=== PATIENT | female | born 1965 | race Caucasian/White ===

== ENCOUNTER 2018-03-07 10:34 | Emergency (ER) | payer SELFPAY ==
[2018-03-07] VITALS (7 sets, daily range): BP systolic 84–148; BP diastolic 48–86; PULSE 55–88; RESP 15–18; TEMP 36.7; O2SAT 95–100; BMI 17.2
--- NOTE | 2018-03-07 11:21 | DI.RAD.S_ITS ---
PROCEDURE: XR CHEST 2V INDICATIONS: episgastric pain TECHNIQUE: 2 views of the chest were acquired. COMPARISON: None. FINDINGS: Surgical changes and devices: None. Lungs and pleura: No pleural effusions or pneumothorax. Lungs are clear. Pulmonary hyperexpansion may reflect COPD. Mediastinum: Mediastinal contours are normal. Heart size is normal. Bones and chest wall: No suspicious bony abnormalities. Soft tissues appear unremarkable. IMPRESSION: 1. Possible chronic obstructive pulmonary disease. No acute cardiopulmonary abnormality seen. Dictated by: George Scales M.D. on 03/07/2018 at 11:51 Approved by: George Scales M.D. on 03/07/2018 at 11:52
[2018-03-07] MEDS: SODIUM CHLORIDE 0.9% 1,000 ML 1000 ML IV (11:30)
[2018-03-07] MEDS: HYDROMORPHONE 0.5 MG INJ 1 MG IV (11:49)
[2018-03-07] MEDS: ONDANSETRON 4 MG/2 ML INJ IV (11:51)
[2018-03-07 11:54] LABS: Add Manual Diff / Slide Review NO; Basophils Percent Auto 0.2 % (0-2); Eosinophils Percent Auto 0.7 % (2-4); Hematocrit 46.5 % (36-46); Hemoglobin 15.6 g/dL (12.0-16.0); Lymphocytes Percent Auto 17.4 % (25-40); Mean Corpuscular HGB Conc 33.4 % (30-36); Mean Corpuscular Hemoglobin 30.8 PG (26-34); Mean Corpuscular Volume 92.1 fL (80-100); Monocytes Percent Auto 7.6 % (3-14); Neutrophils Absolute Auto 8700 /uL (3000-5900); Neutrophils Percent Auto 74.1 % (50-75); Platelet Count 142 X10^3/uL (150-400); Red Blood Cell Count 5.05 X10^6/uL (4.0-5.2); Red Cell Distribution Width 13.3 % (11.6-14.8); White Blood Cell Count 11.7 X10^3/uL (4.5-11.0)
[2018-03-07 12:00] LABS: Bacteria Urine None Seen; RBC Urine None Seen (0-5/HPF); WBC Urine None Seen (0-5/HPF)
[2018-03-07 12:02] LABS: Alanine Aminotransferase 26 IU/L (9-52); Albumin 4.2 g/dL (3.5-5.0); Albumin Globulin Ratio 1.5 (1.0-2.8); Alkaline Phosphatase 47 U/L (38-126); Aspartate Aminotransferase 28 IU/L (14-36); Bilirubin Total 0.5 mg/dL (0.2-1.3); Blood Urea Nitrogen 21 mg/dL (7-17); Calcium 9.5 mg/dL (8.4-10.2); Carbon Dioxide 38 mmol/L (22-32); Chloride 96 mmol/L (98-107); Estimated Glomerular Filt Rate > 60.0 mL/min (>60); Globulin 2.8 g/dL (1.7-4.1); Glucose 112 mg/dL (70-100); HEMOLYSIS < 15 (0-50); Lipase 119 U/L (23-300); Magnesium 2.1 mg/dL (1.6-2.3); Potassium 3.8 mmol/L (3.4-5.1); Sodium 138 mmol/L (137-145)
[2018-03-07 12:04] LABS: Appearance Urine UA CLEAR; Bilirubin Urine UA NEGATIVE (NEGATIVE); Color Urine UA YELLOW; Glucose Urine UA NEGATIVE (Normal); Ketones Urine UA NEGATIVE (NEGATIVE); Leukocyte Esterase Urine UA NEGATIVE (NEGATIVE); Nitrite Urine UA Negative (Negative); Occult Blood Urine UA TRACE-LYSED (Negative); Protein Urine UA TRACE (Negative); Specific Gravity Urine UA 1.015 (1.000-1.035); Urobilinogen Urine UA 0.2 E.U./dL (0.2); pH Urine UA 7.5 (4.5-8.0)
[2018-03-07 12:11] LABS: Urine Cocaine Negative (Negative); Urine Tetrahydrocannabinol Positive (Negative)
[2018-03-07 12:12] LABS: Urine Amphetamines Negative (Negative); Urine Barbiturates Negative (Negative); Urine Benzodiazepines Negative (Negative); Urine MDMA Negative (Negative); Urine Methadone Negative (Negative); Urine Methamphetamines Negative (Negative); Urine Morphine/Opi cutoff 2000 Positive (Negative); Urine Oxycodone Negative (Negative); Urine Phencyclidine Positive (Negative); Urine Tricyclic Antidepressant Negative (Negative)
[2018-03-07 12:14] LABS: Troponin I 0.016 ng/mL (0.01-0.034)
[2018-03-07 12:25] LABS: Amorphous Sediment Urine 1+; Culture Indicated Urine Cult Not Indicated
--- NOTE | 2018-03-07 12:26 | DI.CT.S_ITS ---
PROCEDURE: CT ABDOMEN PELVIS W CON INDICATIONS: midline pain w/ weight loss and early satiety TECHNIQUE: After the administration of intravenous contrast, 5 mm thick sections acquired from the diaphragm to the symphysis. 5 mm coronal and sagittal reformats were acquired. For radiation dose reduction, the following was used: automated exposure control, adjustment of mA and/or kV according to patient size. COMPARISON: None. FINDINGS: Image quality: Excellent. ABDOMEN: Lung bases: Lung bases are clear. Heart size is normal. Likely emphysema. Solid organs: Liver is normal in size and enhancement. Gallbladder demonstrates enhancing 11 mm nodule (se 2 im 40). Biliary system is non dilated. Pancreas enhances normally. Spleen is normal in size and enhancement. No adrenal nodules. Kidneys demonstrate normal size and enhancement, without hydronephrosis. Peritoneum and bowel: Bowel loops demonstrate normal wall thickness and caliber. No free fluid or air. Nodes and vessels: No retroperitoneal or mesenteric adenopathy by size criteria. Aorta and inferior vena cava are normal in size. Miscellaneous: No ventral hernias. PELVIS: Genitourinary: Bladder wall thickness is normal. Miscellaneous: No inguinal hernias or adenopathy. Bones: No suspicious bony lesions. No vertebral body compression fractures. IMPRESSION: 1. Enhancing nodule in the medial aspect of the gallbladder is indeterminate and may represent a polyp although malignancy cannot be excluded. Consider ultrasound for further evaluation. 2. Bibasilar possible emphysema. Dictated by: Enoch Meade M.D. on 03/07/2018 at 13:29 Approved by: Enoch Meade M.D. on 03/07/2018 at 13:35
[2018-03-07 13:22] LABS: Acetaminophen < 10 ug/mL (10-30)
--- NOTE | 2018-03-07 14:38 | DI.US.S_ITS ---
PROCEDURE: US ABDOMEN LIMITED INDICATIONS: LUQ gallbladder mass - maglinancy? TECHNIQUE: Real-time focused scanning was performed of the abdomen, with image documentation. COMPARISON: [facility], CT, CT ABDOMEN PELVIS W CON, 03/07/2018, 12:53. FINDINGS: Corresponding to the CT finding is a solid 6 x 8 x 8 mm isoechoic mass in the gallbladder wall which otherwise is normal in thickness at 1.5 mm. There is mild vascularity present within the nodule. No associated calcification or shadowing. IMPRESSION: Gallbladder wall mass is confirmed and tumor is suspect. If the finding does represent a gallbladder polyp, it is measuring 8 mm for which followup is recommended. Dictated by: George Scales M.D. on 03/07/2018 at 15:43 Approved by: George Scales M.D. on 03/07/2018 at 15:49
[2018-03-07] MEDS: HALOPERIDOL 5 MG/ML VIAL 3 MG IV (15:07)
--- NOTE | 2018-03-07 16:39 | ED_ITS ---
HPI - Abdominal Pain General Chief Complaint: Abdominal Pain Stated Complaint: ABDOMINAL PAIN Time Seen by Provider: 03/07/18 10:39 History of Present Illness HPI narrative: HPI 53-year-old female smoker presents for evaluation of epigastric discomfort accompanied by nausea and vomiting x 3 days with decreased PO intake. Patient as fevers, chills, chest pain, shortness breath, notes that she is been unable to take adequate PO for 3 days. Continues pass urine at baseline. M/S/F/SocHx notable for: please see HPI; remainder reviewed with patient and in chart. ROS: Negative constitutional, eye, cardiovascular, pulmonary, GI, , MSK, skin , neurologic, psychiatric, endocrine unless noted in the HPI. Exam Gen: pleasant, uncomfortable but not in extremis. Cachectic, malnourished appearing. HEENT: NC, AT, PEERL, EOMI. Resp: Clear to auscultation bilaterally, normal work of breathing, no accessory muscle usage. Card: Regular rate and rhythm with no murmurs, rubs, or gallops, extremities warm and well perfused. GI: moderate epigastric tenderness palpation, remainder of abdomen nontender to palpation, no rebound, guarding, no right upper quadrant tenderness palpation, no focal tenderness palpation of McBurney's point. : No suprapubic tenderness to palpation. MSK: No visible deformities, strength and tone without visually appreciable deficit. Skin: Normal color with no visible lesions. Neuro: AO x 3, no facial asymmetry, vision and hearing WNL. Psych: unusual mood and affect. Labs / Imaging: EKG: SR 51 bpm, 1 mm of J-point elevation in lead V3 without reciprocal changes , no further ST segment elevations or depressions, U waves present, most prominent in V3. CXR: possible chronic obstructive pulmonary disease. No acute cardiopulmonary abnormalities seen. WBC 11.7, HB 15.6, sodium 138, potassium 3.8, magnesium 2.1, AST 28, ALT 26, ALT 47, troponin 0.016, lipase 119. UA - negative nitrate, no bacteria, negative leukocyte esterase. UDS - opiates, marijuana, phencyclidine CT Abd/Pelvis: enhancing nodule in the medial aspect of the gallbladder is indeterminate and may represent polyp although malignancy cannot be excluded. Consider ultrasound for further evaluation. Bibasilar possible emphysema. US Abd: Gallbladder wall mass is confirmed and tumor is suspect. If the finding does represent a gallbladder polyp, it is measuring 8 mm for which followup is recommended. MDM Previous chart, nursing note, labs, imaging, and vitals reviewed. A: 53-year-old female smoker presents for evaluation of epigastric discomfort accompanied by nausea and vomiting x 3 days with decreased PO intake. DDx: ACS, unstable angina, biliary disease, pancreatitis, cannabinoid hyperemesis syndrome, gastritis, dehydration Evaluation: * patient given 1 L NS, 1 mg hydromorphone, and 4 mg Zofran with minimal change in symptoms. Patient then given 3 mg haloperidol IV with resolution of symptoms and able to take PO. * Suspect cannabinoid hyperemesis versus nausea secondary to malignancy. CT abdomen and pelvis notable for enhancing gallbladder nodule, subsequent ultrasound with confirmation the gallbladder wall mass and consume for tumor. Patient however has symptoms suggestive of cannabinoid hyperemesis and near complete resolution with haloperidol. The concerns were communicated with the patient, as she is now taking p.o. well and is asymptomatic she is appropriate for prompt outpatient follow-up. Patient referred to general surgery and primary care. Return to care precautions provided. * Reassuringly, doubt ACS given a nonischemic EKG and a negative troponin, lipase WNL, UA without evidence infection, however is notable for opiates ( likely secondary to those administered during the patient's ED course), marijuana and phencyclidine. Imaging without evidence of further acute disease processes. Disposition: RX for Phenergan provided. Impression: nausea, biliary mass. (please reference below for remainder of encounter information) Related Data Allergies Allergy/AdvReac Type Severity Reaction Status Date / Time No Known Drug Allergies Allergy Verified 03/07/18 10:40 Exam Initial Vital Signs Initial Vital Signs: Vital Signs Temperature 98.0 F 03/07/18 10:40 Pulse Rate 63 03/07/18 10:40 Respiratory Rate 15 07/20/18 10:40 Blood Pressure 147/86 H 03/07/18 10:40 Pulse Oximetry 100 03/07/18 10:40 Course Orders Ordered: ED Orders 03/07/18 11:21 XR chest 2V Stat EKG-12 Lead Stat 03/07/18 11:35 Complete Blood Count AUTO DIFF Stat Comprehensive Metabolic Panel Stat Hepatitis Acute Panel Stat Lipase Stat Magnesium Stat Troponin I Stat 03/07/18 11:50 Urinalysis and Microscopic Stat Urine Drug Screen, Rapid Stat 03/07/18 12:26 CT abdomen pelvis w con Stat 03/07/18 13:52 Acetaminophen Stat 03/07/18 14:38 US abdomen limited Stat Discontinued Medications Haloperidol (Haldol) 3 mg IV NOW ONE Stop: 03/07/18 14:39 Last Admin: 03/07/18 15:07 Dose: 3 mg Hydromorphone HCl (Dilaudid) 1 mg IV NOW ONE Stop: 03/07/18 11:22 Last Admin: 03/07/18 11:49 Dose: 1 mg Sodium Chloride (Normal Saline 0.9%) 1,000 mls @ 1,000 mls/hr IV BOLUS ONE Stop: 03/07/18 12:20 Last Infusion: 03/07/18 14:09 Dose: 0 mls/hr Admin: 03/07/18 11:30 Dose: 1,000 mls/hr Ondansetron HCl (Zofran) 4 mg IV NOW ONE Stop: 03/07/18 11:51 Last Admin: 03/07/18 11:51 Dose: 4 mg Vital Signs - 8 hr 03/07/18 10:40 03/07/18 11:14 03/07/18 12:00 Temperature 98.0 F Pulse Rate 63 55 L 55 L Respiratory Rate 15 16 Blood Pressure 147/86 H Blood Pressure [Left Arm] 148/72 H 115/77 Pulse Oximetry 100 99 98 03/07/18 13:00 03/07/18 14:30 Temperature Pulse Rate 56 L 57 L Respiratory Rate Blood Pressure Blood Pressure [Left Arm] 84/48 L 105/51 L Pulse Oximetry 95 98 MDM - Abdominal Pain Lab Data Result diagrams: 03/07/18 11:35 03/07/18 11:35 Lab Results 07/20/18 07/20/18 07/20/18 Range/Units 11:35 11:35 11:50 WBC 11.7 H (4.5-11.0) X10^3/uL RBC 5.05 (4.0-5.2) X10^6/uL Hgb 15.6 (12.0-16.0) g/dL Hct 46.5 H (36-46) % MCV 92.1 (80-100) fL MCH 30.8 (26-34) PG MCHC 33.4 (30-36) % RDW 13.3 (11.6-14.8) % Plt Count 142 L (150-400) X10^3/uL Neut % (Auto) 74.1 (50-75) % Lymph % (Auto) 17.4 L (25-40) % Tyler % (Auto) 7.6 (3-14) % Eos % (Auto) 0.7 L (2-4) % Baso % (Auto) 0.2 (0-2) % Neut # (Auto) 8700 H (5002-5189) /uL Sodium 138 (137-145) mmol/L Potassium 3.8 (3.4-5.1) mmol/L Chloride 96 L (98-107) mmol/L Carbon Dioxide 38 H (22-32) mmol/L BUN 21 H (7-17) mg/dL Creatinine 0.60 (0.52-1.04) mg/dL Estimated GFR > 60.0 (>60) mL/min BUN/Creatinine Ratio 35.0 H (6-22) Glucose 112 H (70-100) mg/dL Calcium 9.5 (8.4-10.2) mg/dL Magnesium 2.1 (1.6-2.3) mg/dL Total Bilirubin 0.5 (0.2-1.3) mg/dL AST 28 (14-36) IU/L ALT 26 (9-52) IU/L Alkaline Phosphatase 47 (38-126) U/L Troponin I 0.016 (0.01-0.034) ng/mL Total Protein 7.0 (6.3-8.2) g/dL Albumin 4.2 (3.5-5.0) g/dL Globulin 2.8 (1.7-4.1) g/dL Albumin/Globulin Ratio 1.5 (1.0-2.8) Lipase 119 (23-300) U/L Urine Color Yellow Urine Appearance Clear Urine pH 7.5 (4.5-8.0) Ur Specific [place] 1.015 (1.000-1.035) Urine Protein Trace H (Negative) Urine Glucose (UA) Negative (Normal) g/dL Urine Ketones Negative (NEGATIVE) Urine Occult Blood Trace-lysed (Negative) Urine Nitrate Negative (Negative) Urine Bilirubin Negative (NEGATIVE) Urine Urobilinogen 0.2 (0.2) E.U./dL Ur Leukocyte Esterase Negative (NEGATIVE) Urine RBC None seen (0-5/HPF) Urine WBC None seen (0-5/HPF) Amorphous Sediment 1+ Urine Bacteria None seen (None) Ur Culture Indicated? Cult not indicated Micro UA Comment Not Reportable Urine Opiates Screen (Negative) Ur Oxycodone Screen (Negative) Urine Methadone Screen (Negative) Acetaminophen (10-30) ug/mL Ur Barbiturates Screen (Negative) U Tricyclic Antidepress (Negative) Ur Phencyclidine Scrn (Negative) Ur Amphetamines Screen (Negative) U Methamphetamines Scrn (Negative) Ur MDMA Scrn (Ecstasy) (Negative) U Benzodiazepines Scrn (Negative) Urine Cocaine Screen (Negative) U Marijuana (THC) Screen (Negative) 03/07/18 03/07/18 Range/Units 11:50 13:52 WBC (4.5-11.0) X10^3/uL RBC (4.0-5.2) X10^6/uL Hgb (12.0-16.0) g/dL Hct (36-46) % MCV (80-100) fL MCH (26-34) PG MCHC (30-36) % RDW (11.6-14.8) % Plt Count (150-400) X10^3/uL Neut % (Auto) (50-75) % Lymph % (Auto) (25-40) % Tyler % (Auto) (3-14) % Eos % (Auto) (2-4) % Baso % (Auto) (0-2) % Neut # (Auto) (2205-5614) /uL Sodium (137-145) mmol/L Potassium (3.4-5.1) mmol/L Chloride (98-107) mmol/L Carbon Dioxide (22-32) mmol/L BUN (7-17) mg/dL Creatinine (0.52-1.04) mg/dL Estimated GFR (>60) mL/min BUN/Creatinine Ratio (6-22) Glucose (70-100) mg/dL Calcium (8.4-10.2) mg/dL Magnesium (1.6-2.3) mg/dL Total Bilirubin (0.2-1.3) mg/dL AST (14-36) IU/L ALT (9-52) IU/L Alkaline Phosphatase (38-126) U/L Troponin I (0.01-0.034) ng/mL Total Protein (6.3-8.2) g/dL Albumin (3.5-5.0) g/dL Globulin (1.7-4.1) g/dL Albumin/Globulin Ratio (1.0-2.8) Lipase (23-300) U/L Urine Color Urine Appearance Urine pH (4.5-8.0) Ur Specific [place] (1.000-1.035) Urine Protein (Negative) Urine Glucose (UA) (Normal) g/dL Urine Ketones (NEGATIVE) Urine Occult Blood (Negative) Urine Nitrate (Negative) Urine Bilirubin (NEGATIVE) Urine Urobilinogen (0.2) E.U./dL Ur Leukocyte Esterase (NEGATIVE) Urine RBC (0-5/HPF) Urine WBC (0-5/HPF) Amorphous Sediment Urine Bacteria (None) Ur Culture Indicated? Micro UA Comment Urine Opiates Screen Positive H (Negative) Ur Oxycodone Screen Negative (Negative) Urine Methadone Screen Negative (Negative) Acetaminophen < 10 L (10-30) ug/mL Ur Barbiturates Screen Negative (Negative) U Tricyclic Antidepress Negative (Negative) Ur Phencyclidine Scrn Positive H (Negative) Ur Amphetamines Screen Negative (Negative) U Methamphetamines Scrn Negative (Negative) Ur MDMA Scrn (Ecstasy) Negative (Negative) U Benzodiazepines Scrn Negative (Negative) Urine Cocaine Screen Negative (Negative) U Marijuana (THC) Screen Positive H (Negative)
[2018-03-11 11:24] LABS: Hepatitis A Antibody IgM NONREACTIVE; Hepatitis Acute Panel Interp 0.02; Hepatitis B Core Antibody IgM NONREACTIVE; Hepatitis B Surface Antigen NONREACTIVE; Hepatitis C Antibody NONREACTIVE
== END 2018-03-07 16:58 | disposition home or self-care (01) ==
PROVIDERS: Emergency Provider Emergency Medicine
DX: R11.0 Nausea (principal); K83.8 Other specified diseases of biliary tract
CPT/HCPCS: 36415; 36591; 71046; 74177; 76705; 80053; 80074; 80305; 80329; 81001; 83690; 83735; 84484; 85025; 93005; 96361; 96374; 96375; 99283; 99285; G0480; J1170; J1630; J2405; Q9967

== ENCOUNTER 2018-03-25 07:33 | Day surgery (SDC) | payer SELFPAY ==
[2018-03-20 12:03] VITALS: BMI 17.3
[2018-03-25] VITALS (11 sets, daily range): BP systolic 103–139; BP diastolic 64–72; PULSE 55–68; RESP 13–20; TEMP 35.9–36.4; O2SAT 95–100; BMI 17.3
--- NOTE | 2018-03-25 | DI.RAD.S_ITS ---
PROCEDURE: XR CHOLANGIOGRAM OPERATIVE INDICATIONS: CHOLYCYSITITS COMPARISON: None. FINDINGS: Biliary ducts: The surgeon injected contrast into the biliary ducts after cannulation of the cystic duct stump. Visualized intra- and extrahepatic bile ducts are normal in caliber, without strictures. No intraluminal filling defects to suggest retained ductal stones or sludge. No evidence for iatrogenic ductal injury. Duodenum: Contrast flows promptly through the sphincter of Oddi into the duodenum, which appears normal in caliber. IMPRESSION: Normal operative cholangiogram Dictated by: George Scales M.D. on 03/25/2018 at 11:16 Approved by: George Scales M.D. on 03/25/2018 at 11:17
--- NOTE | 2018-03-25 | PATH_ITS ---
[facility] Accession Number: [id number] . 01 Material submitted: . GALL BLADDER AND CONTENTS, MASS AT FUNDUS . 02 Diagnosis: Gallbladder and Contents, Mass at Fundus, Laparoscopic Cholecystectomy: Chronic cholecystitis and cholesterolosis. Adenomyoma (1.3 cm in greatest dimension) present at gallbladder fundus. MRV/03/27/2018 . 02 Electronically signed: . Mary Randle MD, Pathologist NPI- [id number] . 01 Gross description: . Received in formalin, labeled gallbladder and contents, mass @ fundus, is an intact gallbladder (length-6.5 cm, diameter-2.5 cm) with green smooth shiny serosa and a patent cystic duct. No lymph nodes are identified. The lumen contains dark green viscous bile. No calculi are present. The mucosa is green and semi-velvety. A ortega-yellow rubbery mass (1.3 x 1.3 x 0.8 cm) is identified at the fundus 6.3 cm from the cystic duct resection margin. The mass has a solid cystic cut surface containing clear colorless tacky fluid. No other nodules, masses or lesions are identified. Section code: (A1) cystic duct resection margin and two serial sections from the body; (A2-A3) fundus with mass, longitudinally sectioned, mass entirely submitted. ([id number]) /MRV . 02 Pathologist provided ICD-10: K81.1 . 02 CPT . 563064 Performed at: 01 [facility] [address] [id number] MD Rodrigo Humphreys MD Phone: [phone] Performed at: 02 [facility] [place] [address] [place], [place] [id number] MD Kameron Ruelas MD Phone: [phone]
--- NOTE | 2018-03-25 08:34 | PM.PREOP ---
Pre-operative Note Interval Note Pre-op Check: Yes History & Physical Reviewed by Physician and Yes Exam Performed Changes: No H&P completed within 30 days and has changed as indicated here:: Patient seen and examined again today. Her history and physical examination as documented originally a March 12, 2018 remains unchanged. H&P is on the chart. We will proceed with laparoscopic cholecystectomy and possible cholangiography as planned today.
[2018-03-25] MEDS: CEFAZOLIN 1 GM VIAL IV (08:57)
--- NOTE | 2018-03-25 09:51 | SUR.OPER ---
to or from opd via gurneytransfered to or table per self Supine on padded OR bed, head on pillow, safety belt at thigh, both arms padded and tucked at side. . Legs uncrossed. Padded footboard in place. Tape over blanket to secure lower legs.
[2018-03-25] MEDS: BUPIVACAINE 0.5% (PF) VIAL 20 ML INJ (10:05)
[2018-03-25] MEDS: IOPAMIDOL 50 ML VIAL INJ (10:06)
[2018-03-25] MEDS: LIDOCAINE 1% W/EPI INJ 20 ML INJ (10:06)
--- NOTE | 2018-03-25 11:09 | P.OP_ITS ---
Operative Date/Time/Diagnoses Date of procedure: 03/25/18 Time of procedure: 10:58 Pre-op diagnosis: Epigastric pain and gallbladder mass Post-op diagnosis: same Procedure & Clinicians Procedure: 1. Diagnostic laparoscopy 2. Laparoscopic cholecystectomy 3. Intraoperative cholangiography Same procedure as scheduled: Yes Indications: 53-year-old female who presented recently to the emergency department with epigastric severe abdominal pain and nausea of unclear etiology. CT scan and ultrasound demonstrated a submucosal mass in the fundus of the gallbladder. No other pathology was demonstrated. Patient is also experience significant unintended weight loss over the last several months. Therefore diagnostic laparoscopy with cholecystectomy and intraoperative cholangiography for possible gallbladder neoplasm or other pathology was recommended. Surgeon: Buster Montelongo Click Yes if Unassisted: Yes Anesthesia Type: General Operative Notes Findings: 1. No evidence of free fluid or ascites in the abdomen or pelvis 2. Normal peritoneal surfaces without evidence of inflammation or neoplasm 3. Grossly normal stomach 4. Mildly granulomatous liver but no significant hepatomegaly or other abnormalities noted 5. Normal intraoperative cholangiography 6. Normal serosa of the gallbladder but obvious visible and palpable intraluminal lesion at the fundus without any other obvious gallbladder abnormalities 7. No visible abnormal lymphadenopathy in the dawson hepatis or elsewhere in the abdomen 8. Normal omentum without implants or masses 9. Normal uterus, bilateral fallopian tubes, and bilateral ovaries without masses or lesions 10. Grossly normal small bowel and colon within the limits of laparoscopic visualization Closure Type: primary Specimen(s): other (Gallbladder) Implants & Drains: None Estimated Blood Loss (mL): 10 Blood products transfused: none Procedure in detail: After obtaining informed consent the patient was brought to the operating room placed supine on the table. Arms were tucked to her sides bilaterally and all pressure points padded appropriately. After satisfactory induction of anesthesia the abdomen was prepped and draped in usual sterile fashion. A SCOAP time-out was performed per standard protocol. A 1-1 mixture 1 % lidocaine with 1 100,000 epinephrine and 0.5% plain Marcaine was injected in the skin and subcutaneous tissue at the inferior aspect of the umbilicus for postoperative analgesia. Vertical midline incision was created with 11 scalpel blade at the inferior aspect of the umbilicus for distance of approximately 2 cm. Blunt dissection revealed the rectus fascia which was divided in the midline with a 11. Scalpel blade. Edges of the fascia were then secured with Kushal clamps and elevated into the operative field. Two individual 0 Vicryl interrupted sutures were placed superiorly and inferiorly to secure the fascia. Underlying peritoneum was directly visualized and secured between Rani clamps. Peritoneum was then entered sharply between the clamps with a 11 scalpel blade. A blunt 12 mm Soto trocar was inserted into the abdomen and a carbon dioxide pneumoperitoneum was created. Abdomen was visually explored with a 30 degree 5 mm laparoscope. Under direct laparoscopic visualization positions were chosen for placement of 3 additional 5 mm trocars. First trocar was inserted in the epigastrium just to the right of the falciform ligament after achieving local anesthesia. In a similar fashion 2 other 5 mm trocars were placed in the right lateral abdomen. Patient was placed in Trendelenburg position and the pelvis was meticulously examined. Patient was returned to supine position and the remainder of the abdomen was again examined laparoscopically. All findings are as above. Patient was placed in reverse Trendelenburg position and attention turned toward cholecystectomy. Ratcheted grasper was used to secure the fundus of the gallbladder which was retracted superiorly and medially over the liver edge. A Daysi grasper was used to secure the infundibulum of the gallbladder and retracted inferiorly and laterally. Meticulous dissection in the triangle of Calot was performed with a [place] dissector thereby exposing the cystic duct and its junction with the gallbladder. A critical view of the liver bed through the avascular plane was also obtained to confirm the cystic duct. A single clip was placed at the junction of the gallbladder and cystic duct then the duct was partially incised with laparoscopic scissors. Cholangiogram catheter was inserted into the cystic duct and secured with an Cadet clamp. Intraoperative cholangiography was then performed under fluoroscopic guidance. Cystic duct and distal common bile duct filled readily with contrast which drained easily into an otherwise normal appearing duodenum. Patient was placed in Trendelenburg position and intravenous morphine was given per the anesthesia service at my request since the contrast would not flow proximally into the common hepatic duct. After several minutes the contrast filled in otherwise normal common bile duct, common hepatic duct, right hepatic duct, left hepatic duct, and proximal biliary radicles. After obtaining a normal intraoperative cholangiogram patient was returned to reverse Trendelenburg position and the catheter was removed. Cystic duct was controlled with 3 clips and then divided with the scissors. Further dissection revealed an anterior branch of the cystic artery as well as the main trunk of the cystic artery itself. Both of these structures were controlled with laparoscopic clips proximally and distally then divided with the scissors. Gallbladder was removed from the hepatic bed using monopolar cautery then retrieved through the 12 mm umbilical trocar site contained within an Endo pouch. The specimen was sent for permanent section. Right upper quadrant was irrigated with copious amounts of sterile saline solution and hemostasis on the liver bed was noted. Previously placed clips were meticulously examined and noted to be in good position. No evidence of hemorrhage or bile leak anywhere within the operative field was appreciated. Patient was returned to the supine position and irrigation was again performed. Irrigant was noted to return clear. Instruments and trocars were removed under direct laparoscopic visualization and hemostasis verified. Carbon dioxide was evacuated. Fascia at the umbilical site was closed with the previously placed 0 Vicryl suture. Skin at all 4 incisions was closed with a running subcuticular 4 O Monocryl suture. Dermal adhesive was applied all incisions and anesthesia was reversed. Patient extubated in the operating room. She was taken recovery in stable condition. Complications: none Condition: stable Disposition: PACU Plan for aftercare: 1. Discharged home 2. Follow up in surgery Clinic in 2 weeks
[2018-03-25] MEDS: fentaNYL 100 MCG/2 ML INJ 50 MCG IV ×2 (11:15→11:44)
[2018-03-25] MEDS: OXYCODONE/ACETAMINOPHEN 5/325 TABLET 1 TAB PO ×2 (11:40→11:48)
== END 2018-03-25 12:32 | disposition home or self-care (01) ==
PROVIDERS: Visit Provider Surgery
PROC: 0FT44ZZ Resection of Gallbladder, Percutaneous Endoscopic Approach (ICD-10-PCS; CPT 47562; principal; 2018-03-25 08:45)
DX: K81.1 Chronic cholecystitis (principal); D13.5 Benign neoplasm of extrahepatic bile ducts; F17.210 Nicotine dependence, cigarettes, uncomplicated
CPT/HCPCS: 47563; 74300; J0690; J1100; J2250; J2270; J2405; J2704; J3010

== ENCOUNTER 2018-10-01 09:22 | Inpatient (IN) | payer OTHER, MEDICAID, SELFPAY ==
[2018-10-01] VITALS (10 sets, daily range): BP systolic 90–129; BP diastolic 55–80; PULSE 53–66; RESP 16–20; TEMP 36.1–36.7; O2SAT 93–100; BMI 18.0
--- NOTE | 2018-10-01 10:06 | DI.RAD.S_ITS ---
PROCEDURE: XR ACUTE ABDOMEN SERIES INDICATIONS: Abdominal pain TECHNIQUE: One view chest and two views of the abdomen were acquired. COMPARISON: None. FINDINGS: Surgical changes and devices: Central abdominal surgical clips. Chest: Lungs are clear. Heart size is normal. No pleural effusions. No pneumoperitoneum. Abdomen: Bowel gas pattern is normal. No suspicious calcifications. Visualized solid organ contours appear normal. Bones: No suspicious bony lesions. IMPRESSION: No acute disease. No evidence of obstruction Dictated by: Mitchell Talbert M.D. on 10/01/2018 at 10:44 Approved by: Mitchell Talbert M.D. on 10/01/2018 at 10:50
--- NOTE | 2018-10-01 11:44 | PC.NURSE ---
Patient began complaining that RUQ pain has now moved into her chest, I ordered an EKG.
--- NOTE | 2018-10-01 11:45 | PC.NURSE ---
Troponin also added on.
[2018-10-01] MEDS: SODIUM CHLORIDE 0.9% 1,000 ML 1000 ML IV (11:53)
[2018-10-01 11:59] LABS: Add Manual Diff / Slide Review NO; Basophils Absolute Auto 0 /uL (0-100); Basophils Percent Auto 0.3 % (0-2); Eosinophils Absolute Auto 100 /uL (0-450); Eosinophils Percent Auto 0.8 % (2-4); Hematocrit 42.2 % (36-46); Hemoglobin 14.2 g/dL (12.0-16.0); Lymphocytes Absolute Auto 1600 /uL (1100-4500); Lymphocytes Percent Auto 18.1 % (25-40); Mean Corpuscular HGB Conc 33.6 % (30-36); Mean Corpuscular Hemoglobin 30.9 PG (26-34); Monocytes Absolute Auto 500 /uL (0-900); Monocytes Percent Auto 5.2 % (3-14); Neutrophils Absolute Auto 6600 /uL (1500-7000); Neutrophils Percent Auto 75.6 % (50-75); Platelet Count 145 X10^3/uL (150-400); Red Blood Cell Count 4.58 X10^6/uL (4.0-5.2); Red Cell Distribution Width 13.1 % (11.6-14.8); White Blood Cell Count 8.7 X10^3/uL (4.5-11.0)
[2018-10-01 12:03] LABS: Prothrombin Time 11.4 SECONDS (10.1-12.7)
[2018-10-01 12:05] LABS: PTT Partial Thromboplastin Tim 40 SECONDS (26.4-36.2)
[2018-10-01 12:11] LABS: Alanine Aminotransferase 36 IU/L (9-52); Albumin 4.2 g/dL (3.5-5.0); Albumin Globulin Ratio 1.4 (1.0-2.8); Alkaline Phosphatase 53 U/L (38-126); Aspartate Aminotransferase 35 IU/L (14-36); Bilirubin Total 0.3 mg/dL (0.2-1.3); Blood Urea Nitrogen 20 mg/dL (7-17); Calcium 9.1 mg/dL (8.4-10.2); Carbon Dioxide 30 mmol/L (22-32); Chloride 99 mmol/L (98-107); Creatine Kinase 71 U/L (30-135); Estimated Glomerular Filt Rate > 60.0 mL/min (>60); Glucose 117 mg/dL (70-100); HEMOLYSIS < 15 (0-50); Lipase 89 U/L (23-300); Potassium 4.2 mmol/L (3.4-5.1); Sodium 140 mmol/L (137-145); Total Protein 7.2 g/dL (6.3-8.2)
--- NOTE | 2018-10-01 12:11 | ED.ABDPAIN ---
HPI - Abdominal Pain <TONY Benitez - Last Filed: 10/01/18 21:53> General Chief Complaint: Abdominal Pain Stated Complaint: sever pain abdomin area, nausea Time Seen by Provider: 10/01/18 09:31 Source: patient Mode of arrival: ambulatory Limitations: no limitations History of Present Illness HPI narrative: 53-year-old female with history of cholecystectomy and is a nonsmoker here for complaint of epigastric/right upper quadrant pain at that started this morning at 6:30 a.m.. She also reports has and some nausea and vomiting. She denies any stressors or relievers of her discomfort. She denies any fevers or chills. She denies any urinary symptoms. Last bowel movement was earlier today and was unremarkable. No trauma to the abdominal area. Pain radiates up to the sternal area at times. She denies any flank pain. She denies any shortness of breath. MD complaint: abdominal pain Related Data Home Medications Medication Instructions Recorded Confirmed No Known Home Medications 10/01/18 10/01/18 Allergies Allergy/AdvReac Type Severity Reaction Status Date / Time No Known Drug Allergies Allergy Verified 03/25/18 07:57 Review of Systems <TONY Benitez - Last Filed: 10/01/18 21:53> Constitutional Denies chills, Denies fever(s), Denies lethargy and Denies weakness Eyes Denies change in vision, Denies eye discharge, Denies irritation and Denies loss of vision ENT Ears, Nose, Mouth, and Throat: Denies change in voice, Denies neck pain and Denies sore throat Cardiovascular Denies chest pain, Denies irregular heart rhythm, Denies lightheadedness, Denies palpitations, Denies dyspnea, Denies dyspnea on exertion and Denies orthopnea Respiratory Denies cough, Denies dyspnea, Denies dyspnea on exertion and Denies wheezing Gastrointestinal Gastrointestinal: Reports abdominal pain, Reports nausea and Reports vomiting Genitourinary Denies hematuria, Denies flank pain, Denies urinary incontinence and Denies urinary urgency Musculoskeletal Denies neck pain Integumentary/Breasts Denies pruritus, Denies erythema, Denies rash and Denies wounds Neurologic Denies confusion, Denies loss of vision and Denies weakness Psychiatric Denies anxiety, Denies confusion, Denies depression, Denies homicidal ideation and Denies suicidal ideation Endocrine Denies palpitations Hematologic/Lymphatic Denies easy bruising Allergic/Immunologic Denies wheezing PFSH <TONY Benitez - Last Filed: 10/01/18 21:53> Medical History Chronic bronchitis (Acute) Gallbladder mass (Acute) Recurrent urinary tract infection (Acute) Tobacco abuse (Acute) Surgical History History of cholecystectomy (Acute) History of bilateral tubal ligation (Acute) Family History Mother Cancer Sister Cancer Father Medical history unknown Brother Medical history unknown Social History marital status: household members: spouse occupational status: employed other: 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 Smoking Status: Current every day smoker Tobacco: How many years used: 34 quit status: not considering quitting second hand exposure: Yes alcohol intake: former substance use type: marijuana and other Family History Mother Cancer Sister Cancer Father Medical history unknown Brother Medical history unknown Social History marital status: household members: spouse occupational status: employed other: 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 Smoking Status: Current every day smoker Tobacco: How many years used: 34 quit status: not considering quitting second hand exposure: Yes alcohol intake: former substance use type: marijuana and other Exam <TONY Benitez - Last Filed: 10/01/18 21:53> Initial Vital Signs Initial Vital Signs: Vital Signs Temperature 97.0 F L 10/01/18 09:25 Pulse Rate 62 10/01/18 09:25 Respiratory Rate 17 10/01/18 09:25 Blood Pressure 114/78 10/01/18 09:25 Pulse Oximetry 100 10/01/18 09:25 Const General: cooperative and well developed Nutritional Appearance: well nourished Orientation: alert, awake, oriented x3 and not confused HENMT Mouth: oral mucosae normal and moist mucous membranes Eyes Conjunctivae: conjunctivae normal Sclera: sclerae normal Pupils: PERRL EOM: EOM intact bilaterally Chest Chest: normal inspection of the chest Resp Effort & Inspection: normal respiratory effort, able to speak in complete sentences, no respiratory distress and no use of accessory muscles Auscultation: clear to auscultation bilaterally, no rales, no rhonchi and no wheezes Cardio Rate: regular rate Rhythm: regular rhythm Heart Sounds: no click, no gallops, no murmurs and no rubs GI Inspection: non-distended Palpation: soft, no hepatosplenomegaly, No guarding, No pulsatile mass and tender (Tenderness to epigastric area and her right upper quadrant) Auscultation: normal bowel sounds General: No CVA tenderness Skin General: no rashes or lesions noted, No jaundice and No petechiae Neuro General: alert, oriented x3, gait normal and no focal motor deficits Speech: speech normal <Naun Brink DO - Last Filed: 10/02/18 07:13> Initial Vital Signs Initial Vital Signs: Vital Signs Temperature 97.0 F L 10/01/18 09:25 Pulse Rate 62 10/01/18 09:25 Respiratory Rate 17 10/01/18 09:25 Blood Pressure 114/78 10/01/18 09:25 Pulse Oximetry 100 10/01/18 09:25 Scores <TONY Benitez - Last Filed: 10/01/18 21:53> HEART Score Heart Score history: Slightly Suspicious Heart Score EKG: Normal Heart Score Age: 45-64 years old Heart Score risk factors: 1-2 risk factors Heart Score troponin: 1-3 times normal limit Heart Score Total: 3 Course <TONY Benitez - Last Filed: 10/01/18 21:53> Orders Ordered: ED Orders 10/02/18 EC echo doppler complete Routine NM carlene perf SPECT rest & str Routine 10/02/18 05:16 Hepatitis Acute Panel Routine Enoxaparin Sodium (Lovenox) 40 mg SUBCUT DAILY [facility] Guaifenesin (Mucinex) 600 mg PO Q12HR PRN PRN Reason: Cough Hydromorphone HCl (Dilaudid) 0.5 mg IV Q6HR PRN PRN Reason: Pain, Moderate (4-6) Dextrose/Sodium Chloride (Dextrose 5%-0.9% Ns) 1,000 mls @ 100 mls/hr IV CONT SHIN Last Admin: 10/01/18 20:41 Dose: 100 mls/hr Sodium Chloride (Normal Saline 0.9%) 1,000 mls @ 1,000 mls/hr IV BOLUS PRN PRN Reason: Fluid replacement Sodium Chloride (Normal Saline 0.9%) 1,000 mls @ 100 mls/hr IV CONT SHIN Last Admin: 10/02/18 02:58 Dose: 100 mls/hr Levalbuterol HCl (Xopenex) 0.63 mg INH [id number] PRN PRN Reason: Shortness Of Breath Naloxone HCl (Narcan) 0.2 mg IV Q2MIN PRN PRN Reason: Opiate Reversal Ondansetron HCl (Zofran) 4 mg IV Q8HR PRN PRN Reason: Nausea And Vomiting Pantoprazole Sodium (Protonix) 20 mg PO 0700 [facility] Discontinued Medications Aspirin (Aspirin Chew) 324 mg PO NOW ONE Stop: 10/01/18 14:57 Last Admin: 10/01/18 14:57 Dose: 324 mg Hydromorphone HCl (Dilaudid) 1 mg IV NOW ONE Stop: 10/01/18 12:21 Last Admin: 10/01/18 12:37 Dose: 1 mg Sodium Chloride (Normal Saline 0.9%) 1,000 mls @ 1,000 mls/hr IV BOLUS ONE Stop: 10/01/18 11:00 Last Infusion: 10/01/18 14:36 Dose: 0 mls/hr Admin: 10/01/18 11:53 Dose: 1,000 mls/hr Famotidine (Pepcid) 20 mg in 50 mls @ 200 mls/hr IV NOW ONE Stop: 10/01/18 13:29 Last Infusion: 10/01/18 14:53 Dose: 0 mls/hr Admin: 10/01/18 14:37 Dose: 200 mls/hr Ondansetron HCl (Zofran) 4 mg IV NOW ONE Stop: 10/01/18 12:21 Last Admin: 10/01/18 12:37 Dose: 4 mg Vital Signs - 8 hr 10/02/18 00:30 10/02/18 01:16 10/02/18 04:47 Temperature 97.8 F 97.6 F Pulse Rate 63 52 L 71 Respiratory Rate 18 20 Blood Pressure 86/54 L 104/62 105/67 Pulse Oximetry 97 98 <Naun Brink DO - Last Filed: 10/02/18 07:13> Orders Ordered: ED Orders 10/02/18 EC echo doppler complete Routine NM carlene perf SPECT rest & str Routine 10/02/18 05:16 Hepatitis Acute Panel Routine Enoxaparin Sodium (Lovenox) 40 mg SUBCUT DAILY [facility] Guaifenesin (Mucinex) 600 mg PO Q12HR PRN PRN Reason: Cough Hydromorphone HCl (Dilaudid) 0.5 mg IV Q6HR PRN PRN Reason: Pain, Moderate (4-6) Dextrose/Sodium Chloride (Dextrose 5%-0.9% Ns) 1,000 mls @ 100 mls/hr IV CONT [facility] Last Admin: 10/01/18 20:41 Dose: 100 mls/hr Sodium Chloride (Normal Saline 0.9%) 1,000 mls @ 1,000 mls/hr IV BOLUS PRN PRN Reason: Fluid replacement Sodium Chloride (Normal Saline 0.9%) 1,000 mls @ 100 mls/hr IV CONT [facility] Last Admin: 10/02/18 02:58 Dose: 100 mls/hr Levalbuterol HCl (Xopenex) 0.63 mg INH [id number] PRN PRN Reason: Shortness Of Breath Naloxone HCl (Narcan) 0.2 mg IV Q2MIN PRN PRN Reason: Opiate Reversal Ondansetron HCl (Zofran) 4 mg IV Q8HR PRN PRN Reason: Nausea And Vomiting Pantoprazole Sodium (Protonix) 20 mg PO 0700 [facility] Discontinued Medications Aspirin (Aspirin Chew) 324 mg PO NOW ONE Stop: 10/01/18 14:57 Last Admin: 10/01/18 14:57 Dose: 324 mg Hydromorphone HCl (Dilaudid) 1 mg IV NOW ONE Stop: 10/01/18 12:21 Last Admin: 10/01/18 12:37 Dose: 1 mg Sodium Chloride (Normal Saline 0.9%) 1,000 mls @ 1,000 mls/hr IV BOLUS ONE Stop: 10/01/18 11:00 Last Infusion: 10/01/18 14:36 Dose: 0 mls/hr Admin: 10/01/18 11:53 Dose: 1,000 mls/hr Famotidine (Pepcid) 20 mg in 50 mls @ 200 mls/hr IV NOW ONE Stop: 10/01/18 13:29 Last Infusion: 10/01/18 14:53 Dose: 0 mls/hr Admin: 10/01/18 14:37 Dose: 200 mls/hr Ondansetron HCl (Zofran) 4 mg IV NOW ONE Stop: 10/01/18 12:21 Last Admin: 10/01/18 12:37 Dose: 4 mg Vital Signs - 8 hr 10/02/18 00:30 10/02/18 01:16 10/02/18 04:47 Temperature 97.8 F 97.6 F Pulse Rate 63 52 L 71 Respiratory Rate 18 20 Blood Pressure 86/54 L 104/62 105/67 Pulse Oximetry 97 98 MDM - Abdominal Pain <TONY Benitez - Last Filed: 10/01/18 21:53> Lab Data Result diagrams: 10/01/18 11:48 10/02/18 05:16 Lab Results 10/01/18 10/01/18 10/01/18 Range/Units 11:48 11:48 11:48 WBC 8.7 (4.5-11.0) X10^3/uL RBC 4.58 (4.0-5.2) X10^6/uL Hgb 14.2 (12.0-16.0) g/dL Hct 42.2 (36-46) % MCV 92.0 (80-100) fL MCH 30.9 (26-34) PG MCHC 33.6 (30-36) % RDW 13.1 (11.6-14.8) % Plt Count 145 L (150-400) X10^3/uL Neut % (Auto) 75.6 H (50-75) % Lymph % (Auto) 18.1 L (25-40) % [place] % (Auto) 5.2 (3-14) % Eos % (Auto) 0.8 L (2-4) % Baso % (Auto) 0.3 (0-2) % Neut # (Auto) 6600 (4257-3740) /uL Lymph # (Auto) 1600 (3813-0996) /uL [place] # (Auto) 500 (0-900) /uL Eos # (Auto) 100 (0-450) /uL Baso # (Auto) 0 (0-100) /uL PT 11.4 (10.1-12.7) SECONDS INR 1.0 (0.9-1.3) APTT 40 H (26.4-36.2) SECONDS Sodium 140 (137-145) mmol/L Potassium 4.2 (3.4-5.1) mmol/L Chloride 99 (98-107) mmol/L Carbon Dioxide 30 (22-32) mmol/L BUN 20 H (7-17) mg/dL Creatinine 0.50 L (0.52-1.04) mg/dL Estimated GFR > 60.0 (>60) mL/min BUN/Creatinine Ratio 40.0 H (6-22) Glucose 117 H (70-100) mg/dL Calcium 9.1 (8.4-10.2) mg/dL Magnesium (1.6-2.3) mg/dL Total Bilirubin 0.3 (0.2-1.3) mg/dL AST 35 (14-36) IU/L ALT 36 (9-52) IU/L Alkaline Phosphatase 53 (38-126) U/L Total Creatine Kinase 71 (30-135) U/L CK-MB (CK-2) TNP CK-MB (CK-2) Rel Index TNP Troponin I 0.063 H (0.01-0.034) ng/mL Total Protein 7.2 (6.3-8.2) g/dL Albumin 4.2 (3.5-5.0) g/dL Globulin 3.0 (1.7-4.1) g/dL Albumin/Globulin Ratio 1.4 (1.0-2.8) Triglycerides (35-150) mg/dL Cholesterol (140-199) mg/dL LDL Cholesterol, Calc (<100) mg/dL HDL Cholesterol (40-60) mg/dL Lipase 89 (23-300) U/L Urine RBC (0-5/HPF) Urine WBC (0-5/HPF) Urine Bacteria (None) Ur Culture Indicated? Micro UA Comment 10/01/18 10/01/18 10/01/18 Range/Units 11:48 14:55 15:30 WBC (4.5-11.0) X10^3/uL RBC (4.0-5.2) X10^6/uL Hgb (12.0-16.0) g/dL Hct (36-46) % MCV (80-100) fL MCH (26-34) PG MCHC (30-36) % RDW (11.6-14.8) % Plt Count (150-400) X10^3/uL Neut % (Auto) (50-75) % Lymph % (Auto) (25-40) % [place] % (Auto) (3-14) % Eos % (Auto) (2-4) % Baso % (Auto) (0-2) % Neut # (Auto) (7898-0755) /uL Lymph # (Auto) (2597-6637) /uL [place] # (Auto) (0-900) /uL Eos # (Auto) (0-450) /uL Baso # (Auto) (0-100) /uL PT (10.1-12.7) SECONDS INR (0.9-1.3) APTT (26.4-36.2) SECONDS Sodium (137-145) mmol/L Potassium (3.4-5.1) mmol/L Chloride (98-107) mmol/L Carbon Dioxide (22-32) mmol/L BUN (7-17) mg/dL Creatinine (0.52-1.04) mg/dL Estimated GFR (>60) mL/min BUN/Creatinine Ratio (6-22) Glucose (70-100) mg/dL Calcium (8.4-10.2) mg/dL Magnesium (1.6-2.3) mg/dL Total Bilirubin (0.2-1.3) mg/dL AST (14-36) IU/L ALT (9-52) IU/L Alkaline Phosphatase (38-126) U/L Total Creatine Kinase Cancelled (30-135) U/L CK-MB (CK-2) Cancelled CK-MB (CK-2) Rel Index Cancelled Troponin I Cancelled 0.179 H* (0.01-0.034) ng/mL Total Protein (6.3-8.2) g/dL Albumin (3.5-5.0) g/dL Globulin (1.7-4.1) g/dL Albumin/Globulin Ratio (1.0-2.8) Triglycerides (35-150) mg/dL Cholesterol (140-199) mg/dL LDL Cholesterol, Calc (<100) mg/dL HDL Cholesterol (40-60) mg/dL Lipase (23-300) U/L Urine RBC None seen (0-5/HPF) Urine WBC None seen (0-5/HPF) Urine Bacteria None seen (None) Ur Culture Indicated? Cult not indicated Micro UA Comment Microscopic normal 10/01/18 10/01/18 10/02/18 Range/Units 19:25 19:25 05:16 WBC (4.5-11.0) X10^3/uL RBC (4.0-5.2) X10^6/uL Hgb (12.0-16.0) g/dL Hct (36-46) % MCV (80-100) fL MCH (26-34) PG MCHC (30-36) % RDW (11.6-14.8) % Plt Count (150-400) X10^3/uL Neut % (Auto) (50-75) % Lymph % (Auto) (25-40) % [place] % (Auto) (3-14) % Eos % (Auto) (2-4) % Baso % (Auto) (0-2) % Neut # (Auto) (7035-4053) /uL Lymph # (Auto) (5414-2630) /uL [place] # (Auto) (0-900) /uL Eos # (Auto) (0-450) /uL Baso # (Auto) (0-100) /uL PT (10.1-12.7) SECONDS INR (0.9-1.3) APTT (26.4-36.2) SECONDS Sodium 137 (137-145) mmol/L Potassium 4.0 (3.4-5.1) mmol/L Chloride 106 (98-107) mmol/L Carbon Dioxide 27 (22-32) mmol/L BUN 15 (7-17) mg/dL Creatinine 0.50 L (0.52-1.04) mg/dL Estimated GFR > 60.0 (>60) mL/min BUN/Creatinine Ratio 30.0 H (6-22) Glucose 98 (70-100) mg/dL Calcium 7.8 L (8.4-10.2) mg/dL Magnesium 2.1 (1.6-2.3) mg/dL Total Bilirubin (0.2-1.3) mg/dL AST (14-36) IU/L ALT (9-52) IU/L Alkaline Phosphatase (38-126) U/L Total Creatine Kinase (30-135) U/L CK-MB (CK-2) CK-MB (CK-2) Rel Index Troponin I 0.168 H* (0.01-0.034) ng/mL Total Protein (6.3-8.2) g/dL Albumin (3.5-5.0) g/dL Globulin (1.7-4.1) g/dL Albumin/Globulin Ratio (1.0-2.8) Triglycerides 91 (35-150) mg/dL Cholesterol 145 (140-199) mg/dL LDL Cholesterol, Calc 88 (<100) mg/dL HDL Cholesterol 39 L (40-60) mg/dL Lipase (23-300) U/L Urine RBC (0-5/HPF) Urine WBC (0-5/HPF) Urine Bacteria (None) Ur Culture Indicated? Micro UA Comment 10/02/18 Range/Units 05:16 WBC (4.5-11.0) X10^3/uL RBC (4.0-5.2) X10^6/uL Hgb (12.0-16.0) g/dL Hct (36-46) % MCV (80-100) fL MCH (26-34) PG MCHC (30-36) % RDW (11.6-14.8) % Plt Count (150-400) X10^3/uL Neut % (Auto) (50-75) % Lymph % (Auto) (25-40) % [place] % (Auto) (3-14) % Eos % (Auto) (2-4) % Baso % (Auto) (0-2) % Neut # (Auto) (9909-8256) /uL Lymph # (Auto) (8125-3807) /uL [place] # (Auto) (0-900) /uL Eos # (Auto) (0-450) /uL Baso # (Auto) (0-100) /uL PT (10.1-12.7) SECONDS INR (0.9-1.3) APTT (26.4-36.2) SECONDS Sodium (137-145) mmol/L Potassium (3.4-5.1) mmol/L Chloride (98-107) mmol/L Carbon Dioxide (22-32) mmol/L BUN (7-17) mg/dL Creatinine (0.52-1.04) mg/dL Estimated GFR (>60) mL/min BUN/Creatinine Ratio (6-22) Glucose (70-100) mg/dL Calcium (8.4-10.2) mg/dL Magnesium (1.6-2.3) mg/dL Total Bilirubin (0.2-1.3) mg/dL AST (14-36) IU/L ALT (9-52) IU/L Alkaline Phosphatase (38-126) U/L Total Creatine Kinase (30-135) U/L CK-MB (CK-2) CK-MB (CK-2) Rel Index Troponin I 0.114 H (0.01-0.034) ng/mL Total Protein (6.3-8.2) g/dL Albumin (3.5-5.0) g/dL Globulin (1.7-4.1) g/dL Albumin/Globulin Ratio (1.0-2.8) Triglycerides (35-150) mg/dL Cholesterol (140-199) mg/dL LDL Cholesterol, Calc (<100) mg/dL HDL Cholesterol (40-60) mg/dL Lipase (23-300) U/L Urine RBC (0-5/HPF) Urine WBC (0-5/HPF) Urine Bacteria (None) Ur Culture Indicated? Micro UA Comment Point of care testing: Urine Dip Bedside Urine Glucose Negative Bedside Urine Bilirubin - Negative Bedside Urine Ketone ++ 40 Urine Specific [place] 1.015 Bedside Urine Occult Blood - Negative Bedside Urine pH 6.0 Bedside Urine Protein +/- 15 Bedside Urine Urobilinogen - Negative Bedside Urine Nitrite - Negative Bedside Urine Leukocytes - Negative Esterase Imaging Data Chest x-ray: Radiologist's impression: [address] [address] XRay Report Signed Patient: Essie Reveles LMR#: [id number] : 1965Acct:[id number] Age/Sex: 53 / FDate of Service: 10/01/18 Loc: ED Accession Number: [id number] Procedure: XR acute abdomen series Ordering Provider: Naun Brink D.O. PROCEDURE: XR ACUTE ABDOMEN SERIES INDICATIONS: Abdominal pain TECHNIQUE: One view chest and two views of the abdomen were acquired. COMPARISON: None. FINDINGS: Surgical changes and devices: Central abdominal surgical clips. Chest: Lungs are clear. Heart size is normal. No pleural effusions. No pneumoperitoneum. Abdomen: Bowel gas pattern is normal. No suspicious calcifications. Visualized solid organ contours appear normal. Bones: No suspicious bony lesions. IMPRESSION: No acute disease. No evidence of obstruction Dictated by: Mitchell Talbert M.D. on 10/01/2018 at 10:44 Approved by: Mitchell Talbert M.D. on 10/01/2018 at 10:50 CT scan - abdomen: Radiologist's impression: [address] [place] [address] CT Scan Report Signed Patient: Essie Reveles LMR#: [id number] : 1965Acct:[id number] Age/Sex: 53 / FDate of Service: 10/01/18 Loc: ED Accession Number: [id number] Procedure: CT abdomen pelvis w con Ordering Provider: Rd Montelongo PROCEDURE: CT ABDOMEN PELVIS W CON INDICATIONS: Right upper quadrant/epigastric pain TECHNIQUE: After the administration of oral and intravenous contrast, 5 mm thick sections acquired from the diaphragms to the symphysis. 5 mm thick coronal and sagittal reformats were performed. For radiation dose reduction, the following was used: automated exposure control, adjustment of mA and/or kV according to patient size. COMPARISON: [facility], CT, CT ABDOMEN PELVIS W CON, 03/07/2018, 12:53. FINDINGS: Image quality: Excellent. ABDOMEN: Lung bases: Paraseptal emphysema is present in the bilateral lung bases, unchanged from the study dated 03/07/18. No pleural effusion. Heart is normal size. No pericardial effusion. Solid organs: Liver is normal in size and enhancement. There is mild periportal edema. This is similar in extent to the study dated 03/07/18. Gallbladder is surgically absent. Biliary system is non-dilated. Pancreas enhances normally. Spleen is normal in size and enhancement. No adrenal nodules. Kidneys are normal in size and enhancement, without hydronephrosis. Peritoneum and bowel: Stomach, small bowel, and colon loops are normal in caliber and wall thickness. The appendix is thin walled and gas filled. There are scattered sigmoid diverticula. No evidence for diverticulitis. No free fluid or air. Nodes and vessels: No retroperitoneal or mesenteric adenopathy. Aorta and inferior vena cava are normal in caliber. There are scattered atheromatous calcifications throughout the aorta and iliac arteries bilaterally. Miscellaneous: No ventral hernias. PELVIS: Genitourinary: Bladder wall thickness is normal. Miscellaneous: No inguinal hernias or adenopathy. Bones: No suspicious bony lesions. No vertebral body compression fractures. IMPRESSION: 1. No acute intra-abdominal findings. Normal appendix. 2. Mild periportal edema. This is a nonspecific finding, but can be associated with hepatitis. Please correlate clinically and with laboratory values. Dictated by: Anali Aquino M.D. on 10/01/2018 at 14:50 Approved by: Anali Aquino M.D. on 10/01/2018 at 14:55 ECG Data Interpretation: EKG shows normal sinus rhythm no ST elevation or depression. No ectopy. Ventricular rate of 52. Pr interval 1 and 7. QRS duration 85. QTC of 451. MDM Narrative Medical decision making narrative: Chest x-ray was obtained was negative for any acute findings. CT of the abdomen was obtained was also negative for any acute findings. CBC and Chem panel were obtained were unremarkable. EKG shows sinus rhythm with no ST elevation or depression. No ectopy. Troponin was obtained and was for at 1st intermediate at 0.06. Repeat troponin was obtained and was positive at 0.172. Discussed case with Cardiology Dr. Astudillo who recommends admission and had serial enzymes along with stress test in the morning. Vital signs have remained stable while in the emergency room. Her symptoms are better after pain medication and Pepcid. She was given aspirin in the emergency room as well. Discussed case with hospitalist Dr. Arellano who accepted patient. <Naun Brink, - Last Filed: 10/02/18 07:13> Lab Data Lab Results 10/01/18 10/01/18 10/01/18 Range/Units 11:48 11:48 11:48 WBC 8.7 (4.5-11.0) X10^3/uL RBC 4.58 (4.0-5.2) X10^6/uL Hgb 14.2 (12.0-16.0) g/dL Hct 42.2 (36-46) % MCV 92.0 (80-100) fL MCH 30.9 (26-34) PG MCHC 33.6 (30-36) % RDW 13.1 (11.6-14.8) % Plt Count 145 L (150-400) X10^3/uL Neut % (Auto) 75.6 H (50-75) % Lymph % (Auto) 18.1 L (25-40) % [place] % (Auto) 5.2 (3-14) % Eos % (Auto) 0.8 L (2-4) % Baso % (Auto) 0.3 (0-2) % Neut # (Auto) 6600 (1426-3826) /uL Lymph # (Auto) 1600 (2191-6663) /uL [place] # (Auto) 500 (0-900) /uL Eos # (Auto) 100 (0-450) /uL Baso # (Auto) 0 (0-100) /uL PT 11.4 (10.1-12.7) SECONDS INR 1.0 (0.9-1.3) APTT 40 H (26.4-36.2) SECONDS Sodium 140 (137-145) mmol/L Potassium 4.2 (3.4-5.1) mmol/L Chloride 99 (98-107) mmol/L Carbon Dioxide 30 (22-32) mmol/L BUN 20 H (7-17) mg/dL Creatinine 0.50 L (0.52-1.04) mg/dL Estimated GFR > 60.0 (>60) mL/min BUN/Creatinine Ratio 40.0 H (6-22) Glucose 117 H (70-100) mg/dL Calcium 9.1 (8.4-10.2) mg/dL Magnesium (1.6-2.3) mg/dL Total Bilirubin 0.3 (0.2-1.3) mg/dL AST 35 (14-36) IU/L ALT 36 (9-52) IU/L Alkaline Phosphatase 53 (38-126) U/L Total Creatine Kinase 71 (30-135) U/L CK-MB (CK-2) TNP CK-MB (CK-2) Rel Index TNP Troponin I 0.063 H (0.01-0.034) ng/mL Total Protein 7.2 (6.3-8.2) g/dL Albumin 4.2 (3.5-5.0) g/dL Globulin 3.0 (1.7-4.1) g/dL Albumin/Globulin Ratio 1.4 (1.0-2.8) Triglycerides (35-150) mg/dL Cholesterol (140-199) mg/dL LDL Cholesterol, Calc (<100) mg/dL HDL Cholesterol (40-60) mg/dL Lipase 89 (23-300) U/L Urine RBC (0-5/HPF) Urine WBC (0-5/HPF) Urine Bacteria (None) Ur Culture Indicated? Micro UA Comment 10/01/18 10/01/18 10/01/18 Range/Units 11:48 14:55 15:30 WBC (4.5-11.0) X10^3/uL RBC (4.0-5.2) X10^6/uL Hgb (12.0-16.0) g/dL Hct (36-46) % MCV (80-100) fL MCH (26-34) PG MCHC (30-36) % RDW (11.6-14.8) % Plt Count (150-400) X10^3/uL Neut % (Auto) (50-75) % Lymph % (Auto) (25-40) % [place] % (Auto) (3-14) % Eos % (Auto) (2-4) % Baso % (Auto) (0-2) % Neut # (Auto) (8948-3711) /uL Lymph # (Auto) (0558-3463) /uL [place] # (Auto) (0-900) /uL Eos # (Auto) (0-450) /uL Baso # (Auto) (0-100) /uL PT (10.1-12.7) SECONDS INR (0.9-1.3) APTT (26.4-36.2) SECONDS Sodium (137-145) mmol/L Potassium (3.4-5.1) mmol/L Chloride (98-107) mmol/L Carbon Dioxide (22-32) mmol/L BUN (7-17) mg/dL Creatinine (0.52-1.04) mg/dL Estimated GFR (>60) mL/min BUN/Creatinine Ratio (6-22) Glucose (70-100) mg/dL Calcium (8.4-10.2) mg/dL Magnesium (1.6-2.3) mg/dL Total Bilirubin (0.2-1.3) mg/dL AST (14-36) IU/L ALT (9-52) IU/L Alkaline Phosphatase (38-126) U/L Total Creatine Kinase Cancelled (30-135) U/L CK-MB (CK-2) Cancelled CK-MB (CK-2) Rel Index Cancelled Troponin I Cancelled 0.179 H* (0.01-0.034) ng/mL Total Protein (6.3-8.2) g/dL Albumin (3.5-5.0) g/dL Globulin (1.7-4.1) g/dL Albumin/Globulin Ratio (1.0-2.8) Triglycerides (35-150) mg/dL Cholesterol (140-199) mg/dL LDL Cholesterol, Calc (<100) mg/dL HDL Cholesterol (40-60) mg/dL Lipase (23-300) U/L Urine RBC None seen (0-5/HPF) Urine WBC None seen (0-5/HPF) Urine Bacteria None seen (None) Ur Culture Indicated? Cult not indicated Micro UA Comment Microscopic normal 10/01/18 10/01/18 10/02/18 Range/Units 19:25 19:25 05:16 WBC (4.5-11.0) X10^3/uL RBC (4.0-5.2) X10^6/uL Hgb (12.0-16.0) g/dL Hct (36-46) % MCV (80-100) fL MCH (26-34) PG MCHC (30-36) % RDW (11.6-14.8) % Plt Count (150-400) X10^3/uL Neut % (Auto) (50-75) % Lymph % (Auto) (25-40) % [place] % (Auto) (3-14) % Eos % (Auto) (2-4) % Baso % (Auto) (0-2) % Neut # (Auto) (7573-7437) /uL Lymph # (Auto) (3004-6170) /uL [place] # (Auto) (0-900) /uL Eos # (Auto) (0-450) /uL Baso # (Auto) (0-100) /uL PT (10.1-12.7) SECONDS INR (0.9-1.3) APTT (26.4-36.2) SECONDS Sodium 137 (137-145) mmol/L Potassium 4.0 (3.4-5.1) mmol/L Chloride 106 (98-107) mmol/L Carbon Dioxide 27 (22-32) mmol/L BUN 15 (7-17) mg/dL Creatinine 0.50 L (0.52-1.04) mg/dL Estimated GFR > 60.0 (>60) mL/min BUN/Creatinine Ratio 30.0 H (6-22) Glucose 98 (70-100) mg/dL Calcium 7.8 L (8.4-10.2) mg/dL Magnesium 2.1 (1.6-2.3) mg/dL Total Bilirubin (0.2-1.3) mg/dL AST (14-36) IU/L ALT (9-52) IU/L Alkaline Phosphatase (38-126) U/L Total Creatine Kinase (30-135) U/L CK-MB (CK-2) CK-MB (CK-2) Rel Index Troponin I 0.168 H* (0.01-0.034) ng/mL Total Protein (6.3-8.2) g/dL Albumin (3.5-5.0) g/dL Globulin (1.7-4.1) g/dL Albumin/Globulin Ratio (1.0-2.8) Triglycerides 91 (35-150) mg/dL Cholesterol 145 (140-199) mg/dL LDL Cholesterol, Calc 88 (<100) mg/dL HDL Cholesterol 39 L (40-60) mg/dL Lipase (23-300) U/L Urine RBC (0-5/HPF) Urine WBC (0-5/HPF) Urine Bacteria (None) Ur Culture Indicated? Micro UA Comment 10/02/18 Range/Units 05:16 WBC (4.5-11.0) X10^3/uL RBC (4.0-5.2) X10^6/uL Hgb (12.0-16.0) g/dL Hct (36-46) % MCV (80-100) fL MCH (26-34) PG MCHC (30-36) % RDW (11.6-14.8) % Plt Count (150-400) X10^3/uL Neut % (Auto) (50-75) % Lymph % (Auto) (25-40) % [place] % (Auto) (3-14) % Eos % (Auto) (2-4) % Baso % (Auto) (0-2) % Neut # (Auto) (9887-8510) /uL Lymph # (Auto) (9012-0391) /uL [place] # (Auto) (0-900) /uL Eos # (Auto) (0-450) /uL Baso # (Auto) (0-100) /uL PT (10.1-12.7) SECONDS INR (0.9-1.3) APTT (26.4-36.2) SECONDS Sodium (137-145) mmol/L Potassium (3.4-5.1) mmol/L Chloride (98-107) mmol/L Carbon Dioxide (22-32) mmol/L BUN (7-17) mg/dL Creatinine (0.52-1.04) mg/dL Estimated GFR (>60) mL/min BUN/Creatinine Ratio (6-22) Glucose (70-100) mg/dL Calcium (8.4-10.2) mg/dL Magnesium (1.6-2.3) mg/dL Total Bilirubin (0.2-1.3) mg/dL AST (14-36) IU/L ALT (9-52) IU/L Alkaline Phosphatase (38-126) U/L Total Creatine Kinase (30-135) U/L CK-MB (CK-2) CK-MB (CK-2) Rel Index Troponin I 0.114 H (0.01-0.034) ng/mL Total Protein (6.3-8.2) g/dL Albumin (3.5-5.0) g/dL Globulin (1.7-4.1) g/dL Albumin/Globulin Ratio (1.0-2.8) Triglycerides (35-150) mg/dL Cholesterol (140-199) mg/dL LDL Cholesterol, Calc (<100) mg/dL HDL Cholesterol (40-60) mg/dL Lipase (23-300) U/L Urine RBC (0-5/HPF) Urine WBC (0-5/HPF) Urine Bacteria (None) Ur Culture Indicated? Micro UA Comment Point of care testing: Urine Dip Bedside Urine Glucose Negative Bedside Urine Bilirubin - Negative Bedside Urine Ketone ++ 40 Urine Specific [place] 1.015 Bedside Urine Occult Blood - Negative Bedside Urine pH 6.0 Bedside Urine Protein +/- 15 Bedside Urine Urobilinogen - Negative Bedside Urine Nitrite - Negative Bedside Urine Leukocytes - Negative Esterase Discharge Plan Departure Patient Disposition: Admitted As Inpatient Clinical Impression: Elevated troponin I level, Acute epigastric pain Discharge Date/Time: 10/01/18 18:55 Interventions: ED Discharge Assessment Last Done: 10/01/18 18:45 Admit Date/Time: 10/01/18 17:50 Admit Provider: Arlene Arellano <Naun Brink DO - Last Filed: 10/02/18 07:13> Cosign ED Attending Cosnormanature Attestation: I was immediately available in the department for consultation. Documentation has been reviewed. I agree with assessment and plan.
[2018-10-01 12:22] LABS: Troponin I 0.063 ng/mL (0.01-0.034)
[2018-10-01] MEDS: HYDROMORPHONE 1 MG INJ IV (12:37)
[2018-10-01] MEDS: ONDANSETRON 4 MG/2 ML INJ IV (12:37)
--- NOTE | 2018-10-01 12:51 | DI.CT.S_ITS ---
PROCEDURE: CT ABDOMEN PELVIS W CON INDICATIONS: Right upper quadrant/epigastric pain TECHNIQUE: After the administration of oral and intravenous contrast, 5 mm thick sections acquired from the diaphragms to the symphysis. 5 mm thick coronal and sagittal reformats were performed. For radiation dose reduction, the following was used: automated exposure control, adjustment of mA and/or kV according to patient size. COMPARISON: [facility], CT, CT ABDOMEN PELVIS W CON, 03/07/2018, 12:53. FINDINGS: Image quality: Excellent. ABDOMEN: Lung bases: Paraseptal emphysema is present in the bilateral lung bases, unchanged from the study dated 03/07/18. No pleural effusion. Heart is normal size. No pericardial effusion. Solid organs: Liver is normal in size and enhancement. There is mild periportal edema. This is similar in extent to the study dated 03/07/18. Gallbladder is surgically absent. Biliary system is non-dilated. Pancreas enhances normally. Spleen is normal in size and enhancement. No adrenal nodules. Kidneys are normal in size and enhancement, without hydronephrosis. Peritoneum and bowel: Stomach, small bowel, and colon loops are normal in caliber and wall thickness. The appendix is thin walled and gas filled. There are scattered sigmoid diverticula. No evidence for diverticulitis. No free fluid or air. Nodes and vessels: No retroperitoneal or mesenteric adenopathy. Aorta and inferior vena cava are normal in caliber. There are scattered atheromatous calcifications throughout the aorta and iliac arteries bilaterally. Miscellaneous: No ventral hernias. PELVIS: Genitourinary: Bladder wall thickness is normal. Miscellaneous: No inguinal hernias or adenopathy. Bones: No suspicious bony lesions. No vertebral body compression fractures. IMPRESSION: 1. No acute intra-abdominal findings. Normal appendix. 2. Mild periportal edema. This is a nonspecific finding, but can be associated with hepatitis. Please correlate clinically and with laboratory values. Dictated by: Anali Aquino M.D. on 10/01/2018 at 14:50 Approved by: Anali Aquino M.D. on 10/01/2018 at 14:55
--- NOTE | 2018-10-01 13:20 | ED_ITS ---
HPI - Abdominal Pain <TONY Benitez - Last Filed: 10/01/18 21:53> General Chief Complaint: Abdominal Pain Stated Complaint: sever pain abdomin area, nausea Time Seen by Provider: 10/01/18 09:31 Source: patient Mode of arrival: ambulatory Limitations: no limitations History of Present Illness HPI narrative: 53-year-old female with history of cholecystectomy and is a nonsmoker here for complaint of epigastric/right upper quadrant pain at that started this morning at 6:30 a.m.. She also reports has and some nausea and vomiting. She denies any stressors or relievers of her discomfort. She denies any fevers or chills. She denies any urinary symptoms. Last bowel movement was earlier today and was unremarkable. No trauma to the abdominal area. Pain radiates up to the sternal area at times. She denies any flank pain. She denies any shortness of breath. MD complaint: abdominal pain Related Data Home Medications Medication Instructions Recorded Confirmed No Known Home Medications 10/01/18 10/01/18 Allergies Allergy/AdvReac Type Severity Reaction Status Date / Time No Known Drug Allergies Allergy Verified 03/25/18 07:57 Review of Systems <TONY Benitez - Last Filed: 10/01/18 21:53> Constitutional Denies chills, Denies fever(s), Denies lethargy and Denies weakness Eyes Denies change in vision, Denies eye discharge, Denies irritation and Denies loss of vision ENT Ears, Nose, Mouth, and Throat: Denies change in voice, Denies neck pain and Denies sore throat Cardiovascular Denies chest pain, Denies irregular heart rhythm, Denies lightheadedness, Denies palpitations, Denies dyspnea, Denies dyspnea on exertion and Denies orthopnea Respiratory Denies cough, Denies dyspnea, Denies dyspnea on exertion and Denies wheezing Gastrointestinal Gastrointestinal: Reports abdominal pain, Reports nausea and Reports vomiting Genitourinary Denies hematuria, Denies flank pain, Denies urinary incontinence and Denies urinary urgency Musculoskeletal Denies neck pain Integumentary/Breasts Denies pruritus, Denies erythema, Denies rash and Denies wounds Neurologic Denies confusion, Denies loss of vision and Denies weakness Psychiatric Denies anxiety, Denies confusion, Denies depression, Denies homicidal ideation and Denies suicidal ideation Endocrine Denies palpitations Hematologic/Lymphatic Denies easy bruising Allergic/Immunologic Denies wheezing PFSH <TONY Benitez - Last Filed: 10/01/18 21:53> Medical History Chronic bronchitis (Acute) Gallbladder mass (Acute) Recurrent urinary tract infection (Acute) Tobacco abuse (Acute) Surgical History History of cholecystectomy (Acute) History of bilateral tubal ligation (Acute) Family History Mother Cancer Sister Cancer Father Medical history unknown Brother Medical history unknown Social History marital status: household members: spouse occupational status: employed other: 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 Smoking Status: Current every day smoker Tobacco: How many years used: 34 quit status: not considering quitting second hand exposure: Yes alcohol intake: former substance use type: marijuana and other Family History Mother Cancer Sister Cancer Father Medical history unknown Brother Medical history unknown Social History marital status: household members: spouse occupational status: employed other: 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 Smoking Status: Current every day smoker Tobacco: How many years used: 34 quit status: not considering quitting second hand exposure: Yes alcohol intake: former substance use type: marijuana and other Exam <TONY Benitez - Last Filed: 10/01/18 21:53> Initial Vital Signs Initial Vital Signs: Vital Signs Temperature 97.0 F L 10/01/18 09:25 Pulse Rate 62 10/01/18 09:25 Respiratory Rate 17 10/01/18 09:25 Blood Pressure 114/78 10/01/18 09:25 Pulse Oximetry 100 10/01/18 09:25 Const General: cooperative and well developed Nutritional Appearance: well nourished Orientation: alert, awake, oriented x3 and not confused HENMT Mouth: oral mucosae normal and moist mucous membranes Eyes Conjunctivae: conjunctivae normal Sclera: sclerae normal Pupils: PERRL EOM: EOM intact bilaterally Chest Chest: normal inspection of the chest Resp Effort & Inspection: normal respiratory effort, able to speak in complete sentences, no respiratory distress and no use of accessory muscles Auscultation: clear to auscultation bilaterally, no rales, no rhonchi and no wheezes Cardio Rate: regular rate Rhythm: regular rhythm Heart Sounds: no click, no gallops, no murmurs and no rubs GI Inspection: non-distended Palpation: soft, no hepatosplenomegaly, No guarding, No pulsatile mass and tender (Tenderness to epigastric area and her right upper quadrant) Auscultation: normal bowel sounds General: No CVA tenderness Skin General: no rashes or lesions noted, No jaundice and No petechiae Neuro General: alert, oriented x3, gait normal and no focal motor deficits Speech: speech normal <Naun Brink DO - Last Filed: 10/02/18 07:13> Initial Vital Signs Initial Vital Signs: Vital Signs Temperature 97.0 F L 10/01/18 09:25 Pulse Rate 62 10/01/18 09:25 Respiratory Rate 17 10/01/18 09:25 Blood Pressure 114/78 10/01/18 09:25 Pulse Oximetry 100 10/01/18 09:25 Scores <TONY Benitez - Last Filed: 10/01/18 21:53> HEART Score Heart Score history: Slightly Suspicious Heart Score EKG: Normal Heart Score Age: 45-64 years old Heart Score risk factors: 1-2 risk factors Heart Score troponin: 1-3 times normal limit Heart Score Total: 3 Course <TONY Benitez - Last Filed: 10/01/18 21:53> Orders Ordered: ED Orders 10/02/18 EC echo doppler complete Routine NM carlene perf SPECT rest & str Routine 10/02/18 05:16 Hepatitis Acute Panel Routine Enoxaparin Sodium (Lovenox) 40 mg SUBCUT DAILY [facility] Guaifenesin (Mucinex) 600 mg PO Q12HR PRN PRN Reason: Cough Hydromorphone HCl (Dilaudid) 0.5 mg IV Q6HR PRN PRN Reason: Pain, Moderate (4-6) Dextrose/Sodium Chloride (Dextrose 5%-0.9% Ns) 1,000 mls @ 100 mls/hr IV CONT SHIN Last Admin: 10/01/18 20:41 Dose: 100 mls/hr Sodium Chloride (Normal Saline 0.9%) 1,000 mls @ 1,000 mls/hr IV BOLUS PRN PRN Reason: Fluid replacement Sodium Chloride (Normal Saline 0.9%) 1,000 mls @ 100 mls/hr IV CONT SHIN Last Admin: 10/02/18 02:58 Dose: 100 mls/hr Levalbuterol HCl (Xopenex) 0.63 mg INH [id number] PRN PRN Reason: Shortness Of Breath Naloxone HCl (Narcan) 0.2 mg IV Q2MIN PRN PRN Reason: Opiate Reversal Ondansetron HCl (Zofran) 4 mg IV Q8HR PRN PRN Reason: Nausea And Vomiting Pantoprazole Sodium (Protonix) 20 mg PO 0700 [facility] Discontinued Medications Aspirin (Aspirin Chew) 324 mg PO NOW ONE Stop: 10/01/18 14:57 Last Admin: 10/01/18 14:57 Dose: 324 mg Hydromorphone HCl (Dilaudid) 1 mg IV NOW ONE Stop: 10/01/18 12:21 Last Admin: 10/01/18 12:37 Dose: 1 mg Sodium Chloride (Normal Saline 0.9%) 1,000 mls @ 1,000 mls/hr IV BOLUS ONE Stop: 10/01/18 11:00 Last Infusion: 10/01/18 14:36 Dose: 0 mls/hr Admin: 10/01/18 11:53 Dose: 1,000 mls/hr Famotidine (Pepcid) 20 mg in 50 mls @ 200 mls/hr IV NOW ONE Stop: 10/01/18 13:29 Last Infusion: 10/01/18 14:53 Dose: 0 mls/hr Admin: 10/01/18 14:37 Dose: 200 mls/hr Ondansetron HCl (Zofran) 4 mg IV NOW ONE Stop: 10/01/18 12:21 Last Admin: 10/01/18 12:37 Dose: 4 mg Vital Signs - 8 hr 10/02/18 00:30 10/02/18 01:16 10/02/18 04:47 Temperature 97.8 F 97.6 F Pulse Rate 63 52 L 71 Respiratory Rate 18 20 Blood Pressure 86/54 L 104/62 105/67 Pulse Oximetry 97 98 <Naun Brink DO - Last Filed: 10/02/18 07:13> Orders Ordered: ED Orders 10/02/18 EC echo doppler complete Routine NM carlene perf SPECT rest & str Routine 10/02/18 05:16 Hepatitis Acute Panel Routine Enoxaparin Sodium (Lovenox) 40 mg SUBCUT DAILY [facility] Guaifenesin (Mucinex) 600 mg PO Q12HR PRN PRN Reason: Cough Hydromorphone HCl (Dilaudid) 0.5 mg IV Q6HR PRN PRN Reason: Pain, Moderate (4-6) Dextrose/Sodium Chloride (Dextrose 5%-0.9% Ns) 1,000 mls @ 100 mls/hr IV CONT [facility] Last Admin: 10/01/18 20:41 Dose: 100 mls/hr Sodium Chloride (Normal Saline 0.9%) 1,000 mls @ 1,000 mls/hr IV BOLUS PRN PRN Reason: Fluid replacement Sodium Chloride (Normal Saline 0.9%) 1,000 mls @ 100 mls/hr IV CONT [facility] Last Admin: 10/02/18 02:58 Dose: 100 mls/hr Levalbuterol HCl (Xopenex) 0.63 mg INH [id number] PRN PRN Reason: Shortness Of Breath Naloxone HCl (Narcan) 0.2 mg IV Q2MIN PRN PRN Reason: Opiate Reversal Ondansetron HCl (Zofran) 4 mg IV Q8HR PRN PRN Reason: Nausea And Vomiting Pantoprazole Sodium (Protonix) 20 mg PO 0700 [facility] Discontinued Medications Aspirin (Aspirin Chew) 324 mg PO NOW ONE Stop: 10/01/18 14:57 Last Admin: 10/01/18 14:57 Dose: 324 mg Hydromorphone HCl (Dilaudid) 1 mg IV NOW ONE Stop: 10/01/18 12:21 Last Admin: 10/01/18 12:37 Dose: 1 mg Sodium Chloride (Normal Saline 0.9%) 1,000 mls @ 1,000 mls/hr IV BOLUS ONE Stop: 10/01/18 11:00 Last Infusion: 10/01/18 14:36 Dose: 0 mls/hr Admin: 10/01/18 11:53 Dose: 1,000 mls/hr Famotidine (Pepcid) 20 mg in 50 mls @ 200 mls/hr IV NOW ONE Stop: 10/01/18 13:29 Last Infusion: 10/01/18 14:53 Dose: 0 mls/hr Admin: 10/01/18 14:37 Dose: 200 mls/hr Ondansetron HCl (Zofran) 4 mg IV NOW ONE Stop: 10/01/18 12:21 Last Admin: 10/01/18 12:37 Dose: 4 mg Vital Signs - 8 hr 10/02/18 00:30 10/02/18 01:16 10/02/18 04:47 Temperature 97.8 F 97.6 F Pulse Rate 63 52 L 71 Respiratory Rate 18 20 Blood Pressure 86/54 L 104/62 105/67 Pulse Oximetry 97 98 MDM - Abdominal Pain <TONY Benitez - Last Filed: 10/01/18 21:53> Lab Data Result diagrams: 10/01/18 11:48 10/02/18 05:16 Lab Results 10/01/18 10/01/18 10/01/18 Range/Units 11:48 11:48 11:48 WBC 8.7 (4.5-11.0) X10^3/uL RBC 4.58 (4.0-5.2) X10^6/uL Hgb 14.2 (12.0-16.0) g/dL Hct 42.2 (36-46) % MCV 92.0 (80-100) fL MCH 30.9 (26-34) PG MCHC 33.6 (30-36) % RDW 13.1 (11.6-14.8) % Plt Count 145 L (150-400) X10^3/uL Neut % (Auto) 75.6 H (50-75) % Lymph % (Auto) 18.1 L (25-40) % [place] % (Auto) 5.2 (3-14) % Eos % (Auto) 0.8 L (2-4) % Baso % (Auto) 0.3 (0-2) % Neut # (Auto) 6600 (3710-7376) /uL Lymph # (Auto) 1600 (5566-2792) /uL [place] # (Auto) 500 (0-900) /uL Eos # (Auto) 100 (0-450) /uL Baso # (Auto) 0 (0-100) /uL PT 11.4 (10.1-12.7) SECONDS INR 1.0 (0.9-1.3) APTT 40 H (26.4-36.2) SECONDS Sodium 140 (137-145) mmol/L Potassium 4.2 (3.4-5.1) mmol/L Chloride 99 (98-107) mmol/L Carbon Dioxide 30 (22-32) mmol/L BUN 20 H (7-17) mg/dL Creatinine 0.50 L (0.52-1.04) mg/dL Estimated GFR > 60.0 (>60) mL/min BUN/Creatinine Ratio 40.0 H (6-22) Glucose 117 H (70-100) mg/dL Calcium 9.1 (8.4-10.2) mg/dL Magnesium (1.6-2.3) mg/dL Total Bilirubin 0.3 (0.2-1.3) mg/dL AST 35 (14-36) IU/L ALT 36 (9-52) IU/L Alkaline Phosphatase 53 (38-126) U/L Total Creatine Kinase 71 (30-135) U/L CK-MB (CK-2) TNP CK-MB (CK-2) Rel Index TNP Troponin I 0.063 H (0.01-0.034) ng/mL Total Protein 7.2 (6.3-8.2) g/dL Albumin 4.2 (3.5-5.0) g/dL Globulin 3.0 (1.7-4.1) g/dL Albumin/Globulin Ratio 1.4 (1.0-2.8) Triglycerides (35-150) mg/dL Cholesterol (140-199) mg/dL LDL Cholesterol, Calc (<100) mg/dL HDL Cholesterol (40-60) mg/dL Lipase 89 (23-300) U/L Urine RBC (0-5/HPF) Urine WBC (0-5/HPF) Urine Bacteria (None) Ur Culture Indicated? Micro UA Comment 10/01/18 10/01/18 10/01/18 Range/Units 11:48 14:55 15:30 WBC (4.5-11.0) X10^3/uL RBC (4.0-5.2) X10^6/uL Hgb (12.0-16.0) g/dL Hct (36-46) % MCV (80-100) fL MCH (26-34) PG MCHC (30-36) % RDW (11.6-14.8) % Plt Count (150-400) X10^3/uL Neut % (Auto) (50-75) % Lymph % (Auto) (25-40) % [place] % (Auto) (3-14) % Eos % (Auto) (2-4) % Baso % (Auto) (0-2) % Neut # (Auto) (6895-2248) /uL Lymph # (Auto) (0426-4734) /uL [place] # (Auto) (0-900) /uL Eos # (Auto) (0-450) /uL Baso # (Auto) (0-100) /uL PT (10.1-12.7) SECONDS INR (0.9-1.3) APTT (26.4-36.2) SECONDS Sodium (137-145) mmol/L Potassium (3.4-5.1) mmol/L Chloride (98-107) mmol/L Carbon Dioxide (22-32) mmol/L BUN (7-17) mg/dL Creatinine (0.52-1.04) mg/dL Estimated GFR (>60) mL/min BUN/Creatinine Ratio (6-22) Glucose (70-100) mg/dL Calcium (8.4-10.2) mg/dL Magnesium (1.6-2.3) mg/dL Total Bilirubin (0.2-1.3) mg/dL AST (14-36) IU/L ALT (9-52) IU/L Alkaline Phosphatase (38-126) U/L Total Creatine Kinase Cancelled (30-135) U/L CK-MB (CK-2) Cancelled CK-MB (CK-2) Rel Index Cancelled Troponin I Cancelled 0.179 H* (0.01-0.034) ng/mL Total Protein (6.3-8.2) g/dL Albumin (3.5-5.0) g/dL Globulin (1.7-4.1) g/dL Albumin/Globulin Ratio (1.0-2.8) Triglycerides (35-150) mg/dL Cholesterol (140-199) mg/dL LDL Cholesterol, Calc (<100) mg/dL HDL Cholesterol (40-60) mg/dL Lipase (23-300) U/L Urine RBC None seen (0-5/HPF) Urine WBC None seen (0-5/HPF) Urine Bacteria None seen (None) Ur Culture Indicated? Cult not indicated Micro UA Comment Microscopic normal 10/01/18 10/01/18 10/02/18 Range/Units 19:25 19:25 05:16 WBC (4.5-11.0) X10^3/uL RBC (4.0-5.2) X10^6/uL Hgb (12.0-16.0) g/dL Hct (36-46) % MCV (80-100) fL MCH (26-34) PG MCHC (30-36) % RDW (11.6-14.8) % Plt Count (150-400) X10^3/uL Neut % (Auto) (50-75) % Lymph % (Auto) (25-40) % [place] % (Auto) (3-14) % Eos % (Auto) (2-4) % Baso % (Auto) (0-2) % Neut # (Auto) (8887-9193) /uL Lymph # (Auto) (6544-8094) /uL [place] # (Auto) (0-900) /uL Eos # (Auto) (0-450) /uL Baso # (Auto) (0-100) /uL PT (10.1-12.7) SECONDS INR (0.9-1.3) APTT (26.4-36.2) SECONDS Sodium 137 (137-145) mmol/L Potassium 4.0 (3.4-5.1) mmol/L Chloride 106 (98-107) mmol/L Carbon Dioxide 27 (22-32) mmol/L BUN 15 (7-17) mg/dL Creatinine 0.50 L (0.52-1.04) mg/dL Estimated GFR > 60.0 (>60) mL/min BUN/Creatinine Ratio 30.0 H (6-22) Glucose 98 (70-100) mg/dL Calcium 7.8 L (8.4-10.2) mg/dL Magnesium 2.1 (1.6-2.3) mg/dL Total Bilirubin (0.2-1.3) mg/dL AST (14-36) IU/L ALT (9-52) IU/L Alkaline Phosphatase (38-126) U/L Total Creatine Kinase (30-135) U/L CK-MB (CK-2) CK-MB (CK-2) Rel Index Troponin I 0.168 H* (0.01-0.034) ng/mL Total Protein (6.3-8.2) g/dL Albumin (3.5-5.0) g/dL Globulin (1.7-4.1) g/dL Albumin/Globulin Ratio (1.0-2.8) Triglycerides 91 (35-150) mg/dL Cholesterol 145 (140-199) mg/dL LDL Cholesterol, Calc 88 (<100) mg/dL HDL Cholesterol 39 L (40-60) mg/dL Lipase (23-300) U/L Urine RBC (0-5/HPF) Urine WBC (0-5/HPF) Urine Bacteria (None) Ur Culture Indicated? Micro UA Comment 10/02/18 Range/Units 05:16 WBC (4.5-11.0) X10^3/uL RBC (4.0-5.2) X10^6/uL Hgb (12.0-16.0) g/dL Hct (36-46) % MCV (80-100) fL MCH (26-34) PG MCHC (30-36) % RDW (11.6-14.8) % Plt Count (150-400) X10^3/uL Neut % (Auto) (50-75) % Lymph % (Auto) (25-40) % [place] % (Auto) (3-14) % Eos % (Auto) (2-4) % Baso % (Auto) (0-2) % Neut # (Auto) (3759-5162) /uL Lymph # (Auto) (5470-8825) /uL [place] # (Auto) (0-900) /uL Eos # (Auto) (0-450) /uL Baso # (Auto) (0-100) /uL PT (10.1-12.7) SECONDS INR (0.9-1.3) APTT (26.4-36.2) SECONDS Sodium (137-145) mmol/L Potassium (3.4-5.1) mmol/L Chloride (98-107) mmol/L Carbon Dioxide (22-32) mmol/L BUN (7-17) mg/dL Creatinine (0.52-1.04) mg/dL Estimated GFR (>60) mL/min BUN/Creatinine Ratio (6-22) Glucose (70-100) mg/dL Calcium (8.4-10.2) mg/dL Magnesium (1.6-2.3) mg/dL Total Bilirubin (0.2-1.3) mg/dL AST (14-36) IU/L ALT (9-52) IU/L Alkaline Phosphatase (38-126) U/L Total Creatine Kinase (30-135) U/L CK-MB (CK-2) CK-MB (CK-2) Rel Index Troponin I 0.114 H (0.01-0.034) ng/mL Total Protein (6.3-8.2) g/dL Albumin (3.5-5.0) g/dL Globulin (1.7-4.1) g/dL Albumin/Globulin Ratio (1.0-2.8) Triglycerides (35-150) mg/dL Cholesterol (140-199) mg/dL LDL Cholesterol, Calc (<100) mg/dL HDL Cholesterol (40-60) mg/dL Lipase (23-300) U/L Urine RBC (0-5/HPF) Urine WBC (0-5/HPF) Urine Bacteria (None) Ur Culture Indicated? Micro UA Comment Point of care testing: Urine Dip Bedside Urine Glucose Negative Bedside Urine Bilirubin - Negative Bedside Urine Ketone ++ 40 Urine Specific [place] 1.015 Bedside Urine Occult Blood - Negative Bedside Urine pH 6.0 Bedside Urine Protein +/- 15 Bedside Urine Urobilinogen - Negative Bedside Urine Nitrite - Negative Bedside Urine Leukocytes - Negative Esterase Imaging Data Chest x-ray: Radiologist's impression: [address] [address] XRay Report Signed Patient: Essie Reveles LMR#: [id number] : 1965Acct:[id number] Age/Sex: 53 / FDate of Service: 10/01/18 Loc: ED Accession Number: [id number] Procedure: XR acute abdomen series Ordering Provider: Naun Brink D.O. PROCEDURE: XR ACUTE ABDOMEN SERIES INDICATIONS: Abdominal pain TECHNIQUE: One view chest and two views of the abdomen were acquired. COMPARISON: None. FINDINGS: Surgical changes and devices: Central abdominal surgical clips. Chest: Lungs are clear. Heart size is normal. No pleural effusions. No pneumoperitoneum. Abdomen: Bowel gas pattern is normal. No suspicious calcifications. Visualized solid organ contours appear normal. Bones: No suspicious bony lesions. IMPRESSION: No acute disease. No evidence of obstruction Dictated by: Mitchell Talbert M.D. on 10/01/2018 at 10:44 Approved by: Mitchell Talbert M.D. on 10/01/2018 at 10:50 CT scan - abdomen: Radiologist's impression: [address] [place] [address] CT Scan Report Signed Patient: Essie Reveles LMR#: [id number] : 1965Acct:[id number] Age/Sex: 53 / FDate of Service: 10/01/18 Loc: ED Accession Number: [id number] Procedure: CT abdomen pelvis w con Ordering Provider: Rd Montelongo PROCEDURE: CT ABDOMEN PELVIS W CON INDICATIONS: Right upper quadrant/epigastric pain TECHNIQUE: After the administration of oral and intravenous contrast, 5 mm thick sections acquired from the diaphragms to the symphysis. 5 mm thick coronal and sagittal reformats were performed. For radiation dose reduction, the following was used: automated exposure control, adjustment of mA and/or kV according to patient size. COMPARISON: [facility], CT, CT ABDOMEN PELVIS W CON, 03/07/2018, 12:53. FINDINGS: Image quality: Excellent. ABDOMEN: Lung bases: Paraseptal emphysema is present in the bilateral lung bases, unchanged from the study dated 03/07/18. No pleural effusion. Heart is normal size. No pericardial effusion. Solid organs: Liver is normal in size and enhancement. There is mild periportal edema. This is similar in extent to the study dated 03/07/18. Gallbladder is surgically absent. Biliary system is non-dilated. Pancreas enhances normally. Spleen is normal in size and enhancement. No adrenal nodules. Kidneys are normal in size and enhancement, without hydronephrosis. Peritoneum and bowel: Stomach, small bowel, and colon loops are normal in caliber and wall thickness. The appendix is thin walled and gas filled. There are scattered sigmoid diverticula. No evidence for diverticulitis. No free fluid or air. Nodes and vessels: No retroperitoneal or mesenteric adenopathy. Aorta and inferior vena cava are normal in caliber. There are scattered atheromatous calcifications th roughout the aorta and iliac arteries bilaterally. Miscellaneous: No ventral hernias. PELVIS: Genitourinary: Bladder wall thickness is normal. Miscellaneous: No inguinal hernias or adenopathy. Bones: No suspicious bony lesions. No vertebral body compression fractures. IMPRESSION: 1. No acute intra-abdominal findings. Normal appendix. 2. Mild periportal edema. This is a nonspecific finding, but can be associated with hepatitis. Please correlate clinically and with laboratory values. Dictated by: Anali Aquino M.D. on 10/01/2018 at 14:50 Approved by: Anali Aquino M.D. on 10/01/2018 at 14:55 ECG Data Interpretation: EKG shows normal sinus rhythm no ST elevation or depression. No ectopy. Ventricular rate of 52. Pr interval 1 and 7. QRS duration 85. QTC of 451. MDM Narrative Medical decision making narrative: Chest x-ray was obtained was negative for any acute findings. CT of the abdomen was obtained was also negative for any acute findings. CBC and Chem panel were obtained were unremarkable. EKG shows sinus rhythm with no ST elevation or depression. No ectopy. Troponin was obtained and was for at 1st intermediate at 0.06. Repeat troponin was obtained and was positive at 0.172. Discussed case with Cardiology Dr. Astudillo who recommends admission and had serial enzymes along with stress test in the morning. Vital signs have remained stable while in the emergency room. Her symptoms are better after pain medication and Pepcid. She was given aspirin in the emergency room as well. Discussed case with hospitalist Dr. Arellano who accepted patient. <Naun Brink, DO - Last Filed: 10/02/18 07:13> Lab Data Lab Results 10/01/18 10/01/18 10/01/18 Range/Units 11:48 11:48 11:48 WBC 8.7 (4.5-11.0) X10^3/uL RBC 4.58 (4.0-5.2) X10^6/uL Hgb 14.2 (12.0-16.0) g/dL Hct 42.2 (36-46) % MCV 92.0 (80-100) fL MCH 30.9 (26-34) PG MCHC 33.6 (30-36) % RDW 13.1 (11.6-14.8) % Plt Count 145 L (150-400) X10^3/uL Neut % (Auto) 75.6 H (50-75) % Lymph % (Auto) 18.1 L (25-40) % [place] % (Auto) 5.2 (3-14) % Eos % (Auto) 0.8 L (2-4) % Baso % (Auto) 0.3 (0-2) % Neut # (Auto) 6600 (9463-7318) /uL Lymph # (Auto) 1600 (8058-8121) /uL [place] # (Auto) 500 (0-900) /uL Eos # (Auto) 100 (0-450) /uL Baso # (Auto) 0 (0-100) /uL PT 11.4 (10.1-12.7) SECONDS INR 1.0 (0.9-1.3) APTT 40 H (26.4-36.2) SECONDS Sodium 140 (137-145) mmol/L Potassium 4.2 (3.4-5.1) mmol/L Chloride 99 (98-107) mmol/L Carbon Dioxide 30 (22-32) mmol/L BUN 20 H (7-17) mg/dL Creatinine 0.50 L (0.52-1.04) mg/dL Estimated GFR > 60.0 (>60) mL/min BUN/Creatinine Ratio 40.0 H (6-22) Glucose 117 H (70-100) mg/dL Calcium 9.1 (8.4-10.2) mg/dL Magnesium (1.6-2.3) mg/dL Total Bilirubin 0.3 (0.2-1.3) mg/dL AST 35 (14-36) IU/L ALT 36 (9-52) IU/L Alkaline Phosphatase 53 (38-126) U/L Total Creatine Kinase 71 (30-135) U/L CK-MB (CK-2) TNP CK-MB (CK-2) Rel Index TNP Troponin I 0.063 H (0.01-0.034) ng/mL Total Protein 7.2 (6.3-8.2) g/dL Albumin 4.2 (3.5-5.0) g/dL Globulin 3.0 (1.7-4.1) g/dL Albumin/Globulin Ratio 1.4 (1.0-2.8) Triglycerides (35-150) mg/dL Cholesterol (140-199) mg/dL LDL Cholesterol, Calc (<100) mg/dL HDL Cholesterol (40-60) mg/dL Lipase 89 (23-300) U/L Urine RBC (0-5/HPF) Urine WBC (0-5/HPF) Urine Bacteria (None) Ur Culture Indicated? Micro UA Comment 10/01/18 10/01/18 10/01/18 Range/Units 11:48 14:55 15:30 WBC (4.5-11.0) X10^3/uL RBC (4.0-5.2) X10^6/uL Hgb (12.0-16.0) g/dL Hct (36-46) % MCV (80-100) fL MCH (26-34) PG MCHC (30-36) % RDW (11.6-14.8) % Plt Count (150-400) X10^3/uL Neut % (Auto) (50-75) % Lymph % (Auto) (25-40) % [place] % (Auto) (3-14) % Eos % (Auto) (2-4) % Baso % (Auto) (0-2) % Neut # (Auto) (9641-4530) /uL Lymph # (Auto) (6621-9725) /uL [place] # (Auto) (0-900) /uL Eos # (Auto) (0-450) /uL Baso # (Auto) (0-100) /uL PT (10.1-12.7) SECONDS INR (0.9-1.3) APTT (26.4-36.2) SECONDS Sodium (137-145) mmol/L Potassium (3.4-5.1) mmol/L Chloride (98-107) mmol/L Carbon Dioxide (22-32) mmol/L BUN (7-17) mg/dL Creatinine (0.52-1.04) mg/dL Estimated GFR (>60) mL/min BUN/Creatinine Ratio (6-22) Glucose (70-100) mg/dL Calcium (8.4-10.2) mg/dL Magnesium (1.6-2.3) mg/dL Total Bilirubin (0.2-1.3) mg/dL AST (14-36) IU/L ALT (9-52) IU/L Alkaline Phosphatase (38-126) U/L Total Creatine Kinase Cancelled (30-135) U/L CK-MB (CK-2) Cancelled CK-MB (CK-2) Rel Index Cancelled Troponin I Cancelled 0.179 H* (0.01-0.034) ng/mL Total Protein (6.3-8.2) g/dL Albumin (3.5-5.0) g/dL Globulin (1.7-4.1) g/dL Albumin/Globulin Ratio (1.0-2.8) Triglycerides (35-150) mg/dL Cholesterol (140-199) mg/dL LDL Cholesterol, Calc (<100) mg/dL HDL Cholesterol (40-60) mg/dL Lipase (23-300) U/L Urine RBC None seen (0-5/HPF) Urine WBC None seen (0-5/HPF) Urine Bacteria None seen (None) Ur Culture Indicated? Cult not indicated Micro UA Comment Microscopic normal 10/01/18 10/01/18 10/02/18 Range/Units 19:25 19:25 05:16 WBC (4.5-11.0) X10^3/uL RBC (4.0-5.2) X10^6/uL Hgb (12.0-16.0) g/dL Hct (36-46) % MCV (80-100) fL MCH (26-34) PG MCHC (30-36) % RDW (11.6-14.8) % Plt Count (150-400) X10^3/uL Neut % (Auto) (50-75) % Lymph % (Auto) (25-40) % [place] % (Auto) (3-14) % Eos % (Auto) (2-4) % Baso % (Auto) (0-2) % Neut # (Auto) (7665-7295) /uL Lymph # (Auto) (4405-2503) /uL [place] # (Auto) (0-900) /uL Eos # (Auto) (0-450) /uL Baso # (Auto) (0-100) /uL PT (10.1-12.7) SECONDS INR (0.9-1.3) APTT (26.4-36.2) SECONDS Sodium 137 (137-145) mmol/L Potassium 4.0 (3.4-5.1) mmol/L Chloride 106 (98-107) mmol/L Carbon Dioxide 27 (22-32) mmol/L BUN 15 (7-17) mg/dL Creatinine 0.50 L (0.52-1.04) mg/dL Estimated GFR > 60.0 (>60) mL/min BUN/Creatinine Ratio 30.0 H (6-22) Glucose 98 (70-100) mg/dL Calcium 7.8 L (8.4-10.2) mg/dL Magnesium 2.1 (1.6-2.3) mg/dL Total Bilirubin (0.2-1.3) mg/dL AST (14-36) IU/L ALT (9-52) IU/L Alkaline Phosphatase (38-126) U/L Total Creatine Kinase (30-135) U/L CK-MB (CK-2) CK-MB (CK-2) Rel Index Troponin I 0.168 H* (0.01-0.034) ng/mL Total Protein (6.3-8.2) g/dL Albumin (3.5-5.0) g/dL Globulin (1.7-4.1) g/dL Albumin/Globulin Ratio (1.0-2.8) Triglycerides 91 (35-150) mg/dL Cholesterol 145 (140-199) mg/dL LDL Cholesterol, Calc 88 (<100) mg/dL HDL Cholesterol 39 L (40-60) mg/dL Lipase (23-300) U/L Urine RBC (0-5/HPF) Urine WBC (0-5/HPF) Urine Bacteria (None) Ur Culture Indicated? Micro UA Comment 10/02/18 Range/Units 05:16 WBC (4.5-11.0) X10^3/uL RBC (4.0-5.2) X10^6/uL Hgb (12.0-16.0) g/dL Hct (36-46) % MCV (80-100) fL MCH (26-34) PG MCHC (30-36) % RDW (11.6-14.8) % Plt Count (150-400) X10^3/uL Neut % (Auto) (50-75) % Lymph % (Auto) (25-40) % [place] % (Auto) (3-14) % Eos % (Auto) (2-4) % Baso % (Auto) (0-2) % Neut # (Auto) (3597-4935) /uL Lymph # (Auto) (5124-0306) /uL [place] # (Auto) (0-900) /uL Eos # (Auto) (0-450) /uL Baso # (Auto) (0-100) /uL PT (10.1-12.7) SECONDS INR (0.9-1.3) APTT (26.4-36.2) SECONDS Sodium (137-145) mmol/L Potassium (3.4-5.1) mmol/L Chloride (98-107) mmol/L Carbon Dioxide (22-32) mmol/L BUN (7-17) mg/dL Creatinine (0.52-1.04) mg/dL Estimated GFR (>60) mL/min BUN/Creatinine Ratio (6-22) Glucose (70-100) mg/dL Calcium (8.4-10.2) mg/dL Magnesium (1.6-2.3) mg/dL Total Bilirubin (0.2-1.3) mg/dL AST (14-36) IU/L ALT (9-52) IU/L Alkaline Phosphatase (38-126) U/L Total Creatine Kinase (30-135) U/L CK-MB (CK-2) CK-MB (CK-2) Rel Index Troponin I 0.114 H (0.01-0.034) ng/mL Total Protein (6.3-8.2) g/dL Albumin (3.5-5.0) g/dL Globulin (1.7-4.1) g/dL Albumin/Globulin Ratio (1.0-2.8) Triglycerides (35-150) mg/dL Cholesterol (140-199) mg/dL LDL Cholesterol, Calc (<100) mg/dL HDL Cholesterol (40-60) mg/dL Lipase (23-300) U/L Urine RBC (0-5/HPF) Urine WBC (0-5/HPF) Urine Bacteria (None) Ur Culture Indicated? Micro UA Comment Point of care testing: Urine Dip Bedside Urine Glucose Negative Bedside Urine Bilirubin - Negative Bedside Urine Ketone ++ 40 Urine Specific [place] 1.015 Bedside Urine Occult Blood - Negative Bedside Urine pH 6.0 Bedside Urine Protein +/- 15 Bedside Urine Urobilinogen - Negative Bedside Urine Nitrite - Negative Bedside Urine Leukocytes - Negative Esterase Discharge Plan Departure Patient Disposition: Admitted As Inpatient Clinical Impression: Elevated troponin I level, Acute epigastric pain Discharge Date/Time: 10/01/18 18:55 Interventions: ED Discharge Assessment Last Done: 10/01/18 18:45 Admit Date/Time: 10/01/18 17:50 Admit Provider: Arlene Arellano <Naun Brink DO - Last Filed: 10/02/18 07:13> Cosign ED Attending Dionature Attestation: I was immediately available in the department for consultation. Documentation has been reviewed. I agree with assessment and plan.
[2018-10-01] MEDS: FAMOTIDINE 20 MG/50 ML PIGGYBACK 200 MG IV (14:37)
[2018-10-01] MEDS: ASPIRIN 81 MG TAB 324 MG PO (14:57)
[2018-10-01 15:28] LABS: Troponin I 0.179 ng/mL (0.01-0.034)
[2018-10-01 15:44] LABS: Bacteria Urine None Seen; RBC Urine None Seen (0-5/HPF); WBC Urine None Seen (0-5/HPF)
[2018-10-01 15:48] LABS: Culture Indicated Urine Cult Not Indicated; Urine Comments Microscopic Normal
--- NOTE | 2018-10-01 15:54 | PC.NURSE ---
1145 Patient brought from lobby to room. I did my assessment and hooked her up to our monitor at this time. She then told me that the pain which had originally been only in her RUQ was moving up into her chest at that time. I immediately ordered an EKG and a troponin.
--- NOTE | 2018-10-01 16:07 | PC.NURSE ---
0310 At this time I looked to review the patient's lab work and noted the troponin which was 0.063. I informed TONY Montelongo. He ordered a second troponin and EKG as well as aspirin at this time.
[2018-10-01 19:56] LABS: Troponin I 0.168 ng/mL (0.01-0.034)
--- NOTE | 2018-10-01 20:13 | P.HP_ITS ---
History of Present Illness Date Patient Seen: 10/01/18 Time Patient Seen: 19:32 Chief complaint: sever pain abdomin area, nausea Narrative: This is a 53-year-old female patient with a history of cholecystectomy for gallbladder mass in March of last year who presents today with right upper quadrant and epigastric pain. 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 The patient states the onset was sudden while she was having a bowel movement for which she does not need to strain stating that she typically has so mewhat loose stools. Her pain is rated a 10/10 prompting her to come to the emergency department. She reports the pain is similar to the pain she had previously with her gallbladder mass. She had associated nausea but did not vomit until arrival in the emergency department are she reports on bile like material. She indicates that the pain began to move upward substernally but did not rate it to the neck or jaw, neck or shoulders, or back. She reports no associated shortness of breath, no diaphoresis, no palpitations or lightheadedness. Patient does report recent cold symptoms of a stuffy nose and cough that has been productive for phlegm. She has been taking airborne and Vicks sinus for her symptoms but no other daily medications. In the ER the patient was afebrile on arrival at 97.0 with a pulse rate of 62, respirations 17 her blood pressure 114/78 setting 100% on room air. In the ER the patient received an aspirin, Dilaudid with resolution of pain, Zofran for nausea, Pepcid and a saline bolus. She was also evaluated with a chest and abdominal series which was unremarkable and an abdominal CT which demonstrated emphysema bilateral lung bases and periportal edema. The patient has remained pain-free with no further complaints nausea. Her troponin has trended from 0.063 up to 0.179. 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 Smoking Status: Current every day smoker Tobacco: How many years used: 34 quit status: not considering quitting second hand exposure: Yes alcohol intake: former substance use type: marijuana and other Family & Social History Family History Mother Cancer Sister Cancer Father Medical history unknown Brother Medical history unknown Social History: household members spouse Prior Living Arrangements Apartment/Condo other 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 She has been for 34 years. She has extensive history of cancer in the family with her grandmother having tonsil cancer, mother passing away from ovarian cancer at age 45 and her sister having cervical cancer managed with LEEP. She has no knowledge of her father's or brothers health history. Patient has not had pneumonia nor flu vaccine and is adverse to any vaccination. 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 Meds Home Medications Medication Instructions Recorded Confirmed Type No Known Home Medications 10/01/18 10/01/18 History Allergies Allergy/AdvReac Type Severity Reaction Status Date / Time No Known Drug Allergies Allergy Verified 03/25/18 07:57 Review of Systems Review of Systems Constitutional: Denies fevers, chills, sweats, fatigue, fair appetite with stable weight Eyes: Denies visual changes, denies floaters, diplopia ENT: Positive for nasal congestion, Denies headaches, hearing changes, no dysphagia, sore throat or dentalgia, no neck stiffness or pain Respiratory: Positive for wheezing with reported history of chronic bronchitis, productive cough Denies SOB, exertional dyspnea Cardiovascular: Positive substernal chest pain today, Denies palpitations, orthostatic dizziness, syncope, edema Gastrointestinal: Positive nausea vomiting, abdominal muscular pain, loose stools 2-3 times daily Denies reflux or bloating, constipation, denies blood in stool. Genitourinary: Positive for history of recurrent UTIs last episode 6 months ago, denies vaginal discharge, no complains of frequency, burning or urgency, hematuria on voiding Musculoskeletal: denies falls, weakness, limited movement, cramps, edema, myalgia or joint swelling. Integumentary: denies skin lesions, masses, rashes, hives, itching or hair loss Neurological: denies dizziness, confusion, numbness or tingling, speech difficulties or seizures Psychiatric: denies disturbances in thought, attentions or mood Endocrine: denies goiter, lethargy, abnormal sweating, and heat/cold intolerance. Heme/lymph: Denies lymphadenopathy, abnormal bleeding or bruising Exam Vital Signs (past 8 hours): - 10/01/18 14:00 10/01/18 15:00 10/01/18 16:00 Temperature Pulse Rate 66 59 L 55 L Respiratory Rate Blood Pressure Blood Pressure [Right Arm] 94/71 107/69 98/67 Pulse Oximetry 97 93 95 10/01/18 17:00 10/01/18 18:00 10/01/18 18:45 Temperature Pulse Rate 56 L 60 58 L Respiratory Rate 16 Blood Pressure 99/69 Blood Pressure [Right Arm] 92/75 90/65 Pulse Oximetry 97 93 98 10/01/18 19:05 Temperature 98.0 F Pulse Rate 59 L Respiratory Rate 20 Blood Pressure 109/55 L Blood Pressure [Right Arm] Pulse Oximetry 96 Oxygen Delivery Method Room Air Oxygen Flow Rate 0 Narrative Exam Narrative: General: Well developed, underweight, BMI 18.0, in no acute distress. Skin: Warm, dry, pink, no rashes, no visible lesions HEENT: Normocephalic, PERRLA, EOMs intact without nystagmus, conjunctiva moist, sclera is anicteric, hearing grossly normal, no sinus tenderness to percussion, no rhinorrhea, oropharynx is moist and pink without lesions or exudate, dentition in poor repair with missing teeth uvula midline, posterior pharynx without inflammation, no cervical lymphadenopathy Neck: Supple, no masses, thyroid non tender without thyromegaly, trachea midline, no carotid bruits or JVD, no supraclavicular lymphadenopathy Cardiac: Regular bradycardic rhythm, S1-S2, no murmur, no gallops or rubs, 2+ radial pulse, 1+ dorsalis pedis pulse, capillary refill is brisk, no edema Chest: Symmetrical movement, breathing non labored, no cough present, BS with bilateral and expiratory wheezing, diminished bibasilar, no audible coarseness or crackles Abdomen: Soft, epigastric and right upper quadrant tenderness without guarding, no palpable masses, no rebound or peritoneal signs, liver margin is palpated is normal, no flank or suprapubic pain, BS normal. Back: Normal curvature, no tenderness to palpation, no CVA tenderness on percussion Extremities: Full ROM, no synovial effusions or deformities, strength 5/5 and symmetrical Neuro: AAOx4, cranial nerves II-XII grossly intact, distal sensation intact to light touch, no paresthesias Psych: pleasant, thought coherent, stable mood and congruent affect Objective Labs Result Diagrams: 10/01/18 11:48 10/01/18 11:48 Labs: Laboratory Results - last 24 hr 10/01/18 10/01/18 10/01/18 11:48 11:48 11:48 WBC 8.7 RBC 4.58 Hgb 14.2 Hct 42.2 MCV 92.0 MCH 30.9 MCHC 33.6 RDW 13.1 Plt Count 145 L Neut % (Auto) 75.6 H Lymph % (Auto) 18.1 L [place] % (Auto) 5.2 Eos % (Auto) 0.8 L Baso % (Auto) 0.3 Neut # (Auto) 6600 Lymph # (Auto) 1600 [place] # (Auto) 500 Eos # (Auto) 100 Baso # (Auto) 0 PT 11.4 INR 1.0 APTT 40 H Sodium 140 Potassium 4.2 Chloride 99 Carbon Dioxide 30 BUN 20 H Creatinine 0.50 L Estimated GFR > 60.0 BUN/Creatinine Ratio 40.0 H Glucose 117 H Calcium 9.1 Total Bilirubin 0.3 AST 35 ALT 36 Alkaline Phosphatase 53 Total Creatine Kinase 71 CK-MB (CK-2) TNP CK-MB (CK-2) Rel Index TNP Troponin I 0.063 H Total Protein 7.2 Albumin 4.2 Globulin 3.0 Albumin/Globulin Ratio 1.4 Lipase 89 Urine RBC Urine WBC Urine Bacteria Ur Culture Indicated? Micro UA Comment 10/01/18 10/01/18 10/01/18 11:48 14:55 15:30 WBC RBC Hgb Hct MCV MCH MCHC RDW Plt Count Neut % (Auto) Lymph % (Auto) [place] % (Auto) Eos % (Auto) Baso % (Auto) Neut # (Auto) Lymph # (Auto) [place] # (Auto) Eos # (Auto) Baso # (Auto) PT INR APTT Sodium Potassium Chloride Carbon Dioxide BUN Creatinine Estimated GFR BUN/Creatinine Ratio Glucose Calcium Total Bilirubin AST ALT Alkaline Phosphatase Total Creatine Kinase Cancelled CK-MB (CK-2) Cancelled CK-MB (CK-2) Rel Index Cancelled Troponin I Cancelled 0.179 H* Total Protein Albumin Globulin Albumin/Globulin Ratio Lipase Urine RBC None seen Urine WBC None seen Urine Bacteria None seen Ur Culture Indicated? Cult not indicated Micro UA Comment Microscopic normal 10/01/18 19:25 WBC RBC Hgb Hct MCV MCH MCHC RDW Plt Count Neut % (Auto) Lymph % (Auto) [place] % (Auto) Eos % (Auto) Baso % (Auto) Neut # (Auto) Lymph # (Auto) [place] # (Auto) Eos # (Auto) Baso # (Auto) PT INR APTT Sodium Potassium Chloride Carbon Dioxide BUN Creatinine Estimated GFR BUN/Creatinine Ratio Glucose Calcium Total Bilirubin AST ALT Alkaline Phosphatase Total Creatine Kinase CK-MB (CK-2) CK-MB (CK-2) Rel Index Troponin I 0.168 H* Total Protein Albumin Globulin Albumin/Globulin Ratio Lipase Urine RBC Urine WBC Urine Bacteria Ur Culture Indicated? Micro UA Comment Assessment & Plan Assessment & Plan narrative: This is a 53-year-old female patient who had sudden onset of chest pain with elevated troponins and is admitted to the hospital for rule out acute coronary syndrome. 1. Acute epigastric pain -patient describes pain is similar to pain experienced in March 19 gallbladder mass was found and subsequently excised -pain was sudden in onset while having a bowel movement with loose stools and no straining -pain radiated superior to the substernal area -prior history of hepatitis A 30 years ago, denies chronic liver disease, intra-abdominal organs are normal in appearance on CT exam -periportal edema is noted on CT, LFTs and bilirubin are within normal range, patient is afebrile and abdominal pain is not described as abdominal muscle pain. -pain resolved with single dose of Dilaudid without recurrence, will continue Dilaudid 0.5 mg as needed for pain -positive nausea vomiting effectively treated with Zofran, will continue Zofran 4 mg IV as needed for nausea -patient has been tolerating food and eating nuts at the time of encounter, describes decreased appetite since surgery last March, dietitian to consult. -patient received famotidine in the emergency department, will continue pantoprazole 20 mg daily 2. Possible acute coronary syndrome -concerning sudden in onset and may be anginal variant -no prior cardiac history however patient has risk factors of smoking 30-34 pack years -elevated troponin on evaluation at 0.063 increased to 0.179 3 hr later, will continue trending of troponins -patient remains pain free without dyspnea or diaphoresis, nausea has resolved -12 lead EKG reviewed by myself demonstrates sinus bradycardia with ventricular rate of 55 without ectopy, anterior CO at unknown age, inverted T-waves in V1 and 2, as needed interval 187 milliseconds, QRS interval of 86 milliseconds, QTC 476 milliseconds -will obtain an echocardiogram related to prior anterior CO identified on 12 lead EKG -the patient will be NPO after midnight and will obtain a cardiac stress test. 3. Chronic bronchitis, present on admission -30 to 34 year pack year smoking history, positive productive cough, denies shortness of breath -patient endorses a history of bronchitis, CT identifies emphysema changes bibasilar lobes -scattered end expiratory wheezing bilaterally, patient reports frequently wheezing -patient will be on continuous pulse oximetry -respiratory therapy to consult -oxygen as needed to keep saturations greater than 92% -Xopenex nebulizer as needed Is a 53-year-old female presents to the ER with sudden onset of acute epigastric and right upper quadrant pain and elevated troponins. She is admitted observation status due to risk complications and need for continuous close monitoring. Patient's length of stay is estimated to be less than 2 midnights. Time Spent With Patient Time with patient: 15-24 minutes Scores [facility] [place] coma scale eye opening: Spontaneous Kylie coma scale verbal response: Orientated [place] coma scale motor response: Obey commands Kylie coma scale total score: 15
[2018-10-01] MEDS: DEXTROSE 5%-0.9% NS 1,000 ML 100 ML IV (20:41)
[2018-10-01 20:44] LABS: Magnesium 2.1 mg/dL (1.6-2.3)
[2018-10-02] VITALS (7 sets, daily range): BP systolic 86–112; BP diastolic 54–72; PULSE 52–71; RESP 18–20; TEMP 36.4–36.9; O2SAT 94–98
--- NOTE | 2018-10-02 | DI.ECHO.S_ITS ---
[place] [facility] +---------+ [facility] +---------+ : : [address] : : : : [id number] : : : : Phone: [phone] Echocardiogram Report + + :Name: OBDULIA LAZCANO Study Date: 10/02/2018 Height: 64 in : :[facility] Weight: 105 lb : : Gender: Female BSA: 1.5 m2 : :: 1965 Age: 53 yrs BP: 101/55 mmHg: :Reason For Study: SD-Recent : : Performed By: Marisol Flores : :Referring: FLORENTIN MAHARAJ : + + Interpretation Summary The left ventricle is grossly normal size. The ejection fraction is estimated to be 35-40%. Severe hypokinesis to akinesis mid to distal septum, mid to distal anterior wall, apex, and distal inferior posterior lateral wall. There is no obvious LV thrombus. The right ventricle is mildly dilated. The right ventricular systolic function is normal. There is mild to moderate tricuspid regurgitation. The right ventricular systolic pressure is estimated to be at least 32 mmHg based on an estimated right atrial pressure of 8 mm Hg. Procedure: A two-dimensional transthoracic echocardiogram with color flow and Doppler was performed. The study quality was technically good. There is no prior echocardiogram noted for this patient. The patient was in normal sinus rhythm during the exam. Left Ventricle: The left ventricle is grossly normal size. There is normal left ventricular wall thickness. There is no thrombus. The ejection fraction is estimated to be 35-40%. Severe hypokinesis to akinesis mid to distal septum, mid to distal anterior wall, apex, and distal inferior posterior lateral wall. Diastolic parameters suggest probable normal left ventricular diastolic function and normal filling pressures. Right Ventricle: The right ventricle is mildly dilated. The right ventricular systolic function is normal. Atria: The left atrial size is normal. Right atrial size is normal. A prominent eustachian valve is noted. The interatrial septum is intact with no evidence for an atrial septal defect. Mitral Valve: There is mild mitral annular calcification. The mitral valve leaflets are slightly calcified. There is trace mitral regurgitation. Aortic Valve: The aortic valve is trileaflet. The aortic valve opens well. There is mild aortic valve sclerosis. There is no aortic valve stenosis. No aortic regurgitation is present. Tricuspid Valve: The tricuspid valve is normal. There is mild to moderate tricuspid regurgitation. The right ventricular systolic pressure is estimated to be at least 32 mmHg based on an estimated right atrial pressure of 8 mm Hg. Pulmonic Valve: The pulmonic valve is normal in structure and function. There is trace pulmonic regurgitation. Great Vessels: The aortic root is normal size. The dimensions of the ascending aorta are normal. The IVC is dilated (diameter is greater than 2.1 cm) yet it collapses greater than 50% with a sniff. This suggests a right atrial pressure of 8 mm Hg. Pericardium/ Pleura There is no pericardial effusion. There is no pleural effusion. MMode/2D Measurements & Calculations LVIDd: 4.9 cm Ao root diam: 2.9 cm LVIDs: 3.6 cm asc Aorta Diam: 2.5 cm FS: 27.5 % Ao Arch Diam (Prox Trans): 2.5 cm EPSS: 1.1 cm IVSd: 0.74 cm LVPWd: 0.79 cm LV valdivia. diameter/BSA (cm/m^2): 3.3 LV sys. diameter/BSA (cm/m^2): 2.4 LA dimension: 2.8 cm RA long axis: 4.0 cm LA A2 area: 13.7 cm2 RA area: 11.4 cm2 LA A4 area: 12.5 cm2 RA vol: 27.7 ml LA length (vol): 3.6 cm RA : 18.6 ml/m2 LA vol: 39.9 ml IVC diam: 2.4 cm LA vol index: 26.8 ml/m2 RVDd major: 4.8 cm RVD1 (basal): 3.0 cm RVD2 (mid): 2.3 cm Doppler Measurements & Calculations Ao V2 max: 120.5 cm/sec MV E max earl: 87.2 cm/sec Ao V2 mean: 74.2 cm/sec MV A max earl: 57.3 cm/sec Ao max P.8 mmHg MV E/A: 1.5 Ao mean P.6 mmHg Med Peak E' Earl: 8.8 cm/sec Ao V2 VTI: 26.7 cm E/E' med: 9.9 Lat Peak E' Earl: 7.8 cm/sec E/E' lat: 11.2 E/e' average: 10.5 MV dec time: 0.23 sec MV P1/2t: 68.6 msec TR max earl: 245.1 cm/sec MV P1/2t max earl: 88.6 cm/sec TR max P.0 mmHg MVA(P1/2t): 3.2 cm2 PA V2 max: 57.5 cm/sec PA V2 mean: 39.9 cm/sec PA mean P.73 mmHg PA Accel Time: 0.19 sec Reading Physician:RENETTA
[2018-10-02] MEDS: SODIUM CHLORIDE 0.9% 1,000 ML 100 ML IV ×3 (02:58→20:15)
--- NOTE | 2018-10-02 04:14 | PC.NURSE ---
Issue Clerk Note: 0015: Awake, resting in bed. has occasional paroxismal moist cough. IV in place in rt forearm. Pt remains on telemetry. She denies chest pain or pressure, or any discomfort. B/P low: reported to TONY Luna.
[2018-10-02 05:44] LABS: Blood Urea Nitrogen 15 mg/dL (7-17); Calcium 7.8 mg/dL (8.4-10.2); Carbon Dioxide 27 mmol/L (22-32); Chloride 106 mmol/L (98-107); Cholesterol 145 mg/dL (140-199); Estimated Glomerular Filt Rate > 60.0 mL/min (>60); Glucose 98 mg/dL (70-100); HDL Cholesterol 39 mg/dL (40-60); HEMOLYSIS < 15 (0-50); LDL Cholesterol Calculated 88 mg/dL (<100); Sodium 137 mmol/L (137-145); Triglycerides 91 mg/dL (35-150)
[2018-10-02 05:55] LABS: Troponin I 0.114 ng/mL (0.01-0.034)
[2018-10-02] MEDS: guaiFENesin ER 600 MG TAB PO (07:55)
[2018-10-02] MEDS: PANTOPRAZOLE 40 MG PACKET 20 MG PO (07:55)
--- NOTE | 2018-10-02 12:34 | P.PCN_ITS ---
Cardiac Stress Test Report Referral & Results Date Patient Seen: 10/02/18 Time Patient Seen: 12:32 Requesting provider: Arlene Arellano Indication: Chest pain, abnormal troponin, current inpatient Rest ECG: Unremarkable Procedure Note: Today following both written and verbal informed consent the patient was exercised according to a standard [place] protocol patient went for a total of 5 min 25 sec achieving a maximum heart rate of 166 maximum systolic blood pressure of 160. This is approximately 7.0 METS. Exercise was terminated at this point because of inability the patient to continue, and targets were met. Patient was also given Cardiolite through a previously started Hep-Lock IV by the garage door service technician approximately 1 minute prior to the cessation of exercise. There are no ST-T segment changes Normal heart rate and blood pressure response to exercise Functional aerobic impairment rated 15% on the sedentary scale Occasional PVCs and ventricular couplets identified that were asymptomatic Impression: No ECG evidence of ischemia Please see perfusion imaging report for further details Ventricular dysrhythmia as above Please note: Actual ECG tracings can be found in the PACS system.
--- NOTE | 2018-10-02 13:33 | PC.NURSE ---
1330 retuned from Stress test. Diet ordered now. F/U tomorrow at 1030. echo completed at 1150 today as well.
--- NOTE | 2018-10-02 14:57 | P.PN_ITS ---
Subjective Date Patient Seen: 10/02/18 Interval history: Events reviewed patient seen examined patient has had no f urther epigastric or chest pain. She denies any shortness of breath. She underwent a stress test today without event. During the stress test she had no further chest pain. She cut achieve a maximum heart rate however there were no evidence of angina or ST segment changes. The patient had some abnormalities involving the images near the septum and anterior area. A resting study will be obtained tomorrow. Exam Vital Signs (past 8 hours): - 10/02/18 07:31 10/02/18 13:27 Temperature 97.8 F 98.5 F Pulse Rate 64 57 L Respiratory Rate 18 18 Blood Pressure 101/55 L 105/68 Pulse Oximetry 94 97 Oxygen Delivery Method Room Air Oxygen Flow Rate 0 Narrative Exam Narrative: Pleasant female without pain Lungs: Clear Cardiac exam: Regular rate rhythm normal S1 and S2 with a 2/6 systolic ejection Abdomen: Soft nontender nondistended Extremities: No edema Objective Labs Result Diagrams: 10/01/18 11:48 10/02/18 05:16 Labs: Laboratory Results - last 24 hr 10/01/18 10/01/18 10/01/18 14:55 15:30 19:25 Sodium Potassium Chloride Carbon Dioxide BUN Creatinine Estimated GFR BUN/Creatinine Ratio Glucose Calcium Magnesium Troponin I 0.179 H* 0.168 H* Triglycerides Cholesterol LDL Cholesterol, Calc HDL Cholesterol Urine RBC None seen Urine WBC None seen Urine Bacteria None seen Ur Culture Indicated? Cult not indicated Micro UA Comment Microscopic normal 10/01/18 10/02/18 10/02/18 19:25 05:16 05:16 Sodium 137 Potassium 4.0 Chloride 106 Carbon Dioxide 27 BUN 15 Creatinine 0.50 L Estimated GFR > 60.0 BUN/Creatinine Ratio 30.0 H Glucose 98 Calcium 7.8 L Magnesium 2.1 Troponin I 0.114 H Triglycerides 91 Cholesterol 145 LDL Cholesterol, Calc 88 HDL Cholesterol 39 L Urine RBC Urine WBC Urine Bacteria Ur Culture Indicated? Micro UA Comment Assessment & Plan Assessment & Plan narrative: 1. Type 2 myocardial infarction patient's troponin peaked at 0.179 and now is 0.114. Echocardiogram showed an ejection fraction of 35-40%. She also is found to have severe hypokinesis to akinesis of the distal septum mid distal anterior wall and inferior wall. Patient will have a resting study tomorrow. If the resting scan is abnormal arrangements will be made for to be transferred for cardiac catheterization. Given her low ejection fraction would consider adding an HANY-inhibitor. Will start the patient on an aspirin. Will will continue with nitroglycerin. Will start Lovenox given abnormal enzymes and echocardiogram findings.
[2018-10-02] MEDS: ASPIRIN EC 325 MG TABLET PO (16:24)
[2018-10-02] MEDS: ENOXAPARIN 60 MG/0.6 ML SYRINGE 50 MG SUBCUT (16:24)
[2018-10-02] MEDS: ATORVASTATIN 10 MG TABLET PO (21:16)
--- NOTE | 2018-10-02 21:17 | PC.NURSE ---
Addendum entered by Rosalinda Sotelo R.N. 10/02/18 22:55: Patient remains stable at this time. critical troponin value 0.345 reported from lab at 2253. TONY Luna aware. Patient's at bedside. Patient and aware of plan of care at this time and agree to transfer to [facility] when bed available Original Note: VTACH: ICU alerted this RN that patient had a 6 beat run of VTACH at 20:42 this shift. Patient asymptomatic, VS 108/68, HR 64, RR 16, O2 96% room air. Patient stated that she felt hot like a hot flash with my menopause but did not feel anything else. TONY Verdin notified and EKG ordered urgently. RT made aware and EKG done, showing acute changes. EKG result immediately given to TONY Kumar at 2114. Will continue to [facility], awaiting new orders.
--- NOTE | 2018-10-02 21:20 | PC.NURSE ---
Addendum entered by Rosalinda Sotelo R.N. 10/02/18 22:51: Patient remains stable at this time. critical troponin value 0.345 reported from lab at 2253. TONY Luna aware. Patient's at bedside. Patient and aware of plan of care at this time and agree to transfer to [facility] when bed available Original Note: Shift summary Patient rested in bed for most of shift. Patient had no complaints of pain or nausea this shift. Patient had six beats of V-tach this shift. No chest pain experienced with v-tach per patient when asked by student nurse. Patient stated she feels hot and claims that her hot flashes are due to menopause. Patient claims she usually sleeps with a fan when experiencing these hot flashes. The student nurse offered patient ice water and a fan for patient comfort. Safety: the bed is low and locked. The call light is within reach.
[2018-10-02 22:11] LABS: PTT Partial Thromboplastin Tim 46 SECONDS (26.4-36.2)
[2018-10-02 22:12] LABS: Creatine Kinase 60 U/L (30-135)
--- NOTE | 2018-10-02 22:14 | P.DS_ITS ---
History of Present Illness Chief complaint: sever pain abdomin area, nausea Narrative: This is a 53-year-old female patient with a history of cholecystectomy for gallbladder mass in March of last year who presents today with right upper quadrant and epigastric pain. The patient states that she be an her usual work shift as a [employer] this morning and had a sudden onset pain at 9:00 a.m.. The patient states the onset was sudden while she was having a bowel movement for which she does not need to strain stating that she typically has somewhat loose stools. Her pain is rated a 10/10 prompting her to come to the emergency department. She reports the pain is similar to the pain she had previously with her gallbladder mass. She had associated nausea but did not vomit until arrival in the emergency department are she reports on bile like material. She indicates that the pain began to move upward substernally but did not rate it to the neck or jaw, neck or shoulders, or back. She reports no associated shortness of breath, no diaphoresis, no palpitations or lightheadedness. Patient does report recent cold symptoms of a stuffy nose and cough that has been productive for phlegm. She has been taking airborne and Vicks sinus for her symptoms but no other daily medications. In the ER the patient was afebrile on arrival at 97.0 with a pulse rate of 62, respirations 17 her blood pressure 114/78 setting 100% on room air. In the ER the patient received an aspirin, Dilaudid with resolution of pain, Zofran for nausea, Pepcid and a saline bolus. She was also evaluated with a chest and abdominal series which was unremarkable and an abdominal CT which demonstrated emphysema bilateral lung bases and periportal edema. The patient has remained pain-free with no further complaints nausea. Her troponin has trended from 0.063 up to 0.179. Discharge Providers Date of admission: 10/01/18 17:50 Consults: 10/01/18 20:25 Consult to Dietitian, Adult Routine Comment: Reason For Exam: low BMI Consult to Discharge Planning Routine Comment: 10/01/18 21:33 Consult to Respiratory Therapy Evaluate & Treat Comment: COPD, wheezing Physician Instructions: Evaluate and treat Discharge provider: TONY Vilchis Discharge Date: 10/03/18 Summary Discharge Diagnosis: 1. Acute LA -patient pain resolved on treatment in the ER yesterday with no further complaints of epigastric pain or substernal chest pain -12 lead EKG at 11:41 on October 01 revealed sinus bradycardia without ectopy or ST changes, noted anterior myocardial infarction of indeterminate age. -troponin on admission was 0.063 that elevated to 0.173 3 hr later and trended down to 0.168 last evening. Troponin this morning was 0.114 -reviewed echo cardiogram obtained today which demonstrates an ejection fraction 35-40%, severe hypokinesis to akinesis of the mid to distal septum, mid to distal anterior wall, apex and distal inferior posterior lateral wall. No LV thrombus. Right ventricle is mildly dilated with a history of COPD reporting an RV systolic pressure of 32 mm/hg based on estimated right atrial pressure of 8 mm/hg -patient remained asymptomatic until this evening had a 6 beat run V-tach with no associated symptoms, no prior ectopy -12 lead EKG read demonstrates T-wave inversion in V1 and 2 with new T-wave inversion in V3 and V4. -called Cardiology, Dr. Mirza, reviewed the case and patient is accepted for transfer 2. Chronic obstructive pulmonary disease, present on admission, active -patient with 30-34 pack year smoking history. -patient with recent cough intermittently productive, history of wheezing -oxygen saturation 96% on room air not requiring supplemental oxygen -Xopenex ordered as needed 3. Epigastric pain, acute -patient with nausea had onset of symptoms and subsequent vomiting, treated in the ER with Zofran with complete resolution no further complaints -patient on GI prophylaxis -consuming heart healthy diet with no GI upset- Hospital Course: The patient is symptoms resolved in the ER with no further complaints of substernal discomfort epigastric discomfort, shortness of breath at rest or on exertion. The patient has remained on tele with no ectopy and till 6 beat run of ventricular tachycardia noted. At that time the patient denied nausea shortness of breath only reported feeling warm. Patient has remained stable with vital signs normal range including oxygenation and remains afebrile. Spoke with Dr. Mirza, Cardiology, reviewed the patient, clinical findings and events. Dr. karla singletary requested to start Plavix 300 mg daily increase Lovenox to 55 mg twice daily, atorvastatin to 40 mg daily and add metoprolol light dose 12.5 mg. He has accepted the patient for transfer with intent to take patient to the quality assurance lab technician. Also spoke with Henna Vick, Hospitalist at [facility], review the patient case. 22:45 a stat recheck the troponin was ordered with results of 0.345 indicative of a new cardiac event. Call placed to [facility] with new information since at the time of consultation the patient was deemed stable with decreasing troponins and plan for transfer in the morning. Will request expedited transport of bed is available. 02:20 Transport team here to transfer patient to [facility]. Report provided. Status at Discharge Cognitive/behavioral status at discharge: Patient is alert appropriate and cooperative and agrees to transfer to [facility] for continuing care Functional status at discharge: independent ambulation Overall status at discharge: other (Patient transferred to [facility] for cardiac specialty care) Time Spent with Patient Less than 30 minutes Exam Vital Signs (past 8 hours): - 10/02/18 15:30 10/02/18 19:47 Temperature 97.8 F 97.8 F Pulse Rate 64 61 Respiratory Rate 18 18 Blood Pressure 98/63 112/72 Pulse Oximetry 97 96 Oxygen Delivery Method Room Air Oxygen Flow Rate 0 Narrative Exam Narrative: Exam Narrative: General: Well developed, underweight, BMI 18.0, in no acute distress. Skin: Warm, dry, pink, no rashes, no visible lesions HEENT: Normocephalic, PERRLA, EOMs intact without nystagmus, conjunctiva moist, sclera is anicteric, hearing grossly normal, no sinus tenderness to percussion, no rhinorrhea, oropharynx is moist and pink without lesions or exudate, dentition in poor repair with missing teeth uvula midline, posterior pharynx without inflammation, no cervical lymphadenopathy Neck: Supple, no masses, thyroid non tender without thyromegaly, trachea midline, no carotid bruits or JVD, no supraclavicular lymphadenopathy Cardiac: Regular bradycardic rhythm, S1-S2, no murmur appreciated, no gallops or rubs, 2+ radial pulse, 1+ dorsalis pedis pulse, capillary refill is brisk, no edema Chest: Symmetrical movement, breathing non labored, no cough present, BS with bilateral and expiratory wheezing, diminished bibasilar, no audible coarseness or crackles Abdomen: Soft, NO epigastric or abdominal tenderness, no guarding, no palpable masses, no rebound or peritoneal signs, liver margin is palpated is normal, no flank or suprapubic pain, BS normal. Back: Normal curvature, no tenderness to palpation, no CVA tenderness on percussion Extremities: Full ROM, no synovial effusions or deformities, strength 5/5 and symmetrical Neuro: AAOx4, cranial nerves II-XII grossly intact, distal sensation intact to light touch, no paresthesias Psych: pleasant, thought coherent, stable mood and congruent affect Objective Labs Result Diagrams: 10/01/18 11:48 10/02/18 05:16 Labs: Laboratory Results - last 24 hr 10/02/18 10/02/18 05:16 05:16 Sodium 137 Potassium 4.0 Chloride 106 Carbon Dioxide 27 BUN 15 Creatinine 0.50 L Estimated GFR > 60.0 BUN/Creatinine Ratio 30.0 H Glucose 98 Calcium 7.8 L Troponin I 0.114 H Triglycerides 91 Cholesterol 145 LDL Cholesterol, Calc 88 HDL Cholesterol 39 L Discharge Plan Discharge Plan Other facility[facility] Under care of provider: Dr. Mirza Transportation: Ambulance The receiving facility has agreed to accept transfer and provide medical treatment.: Yes Discharge Med Rec/Prescriptions Prescriptions: No Action No Known Home Medications RF: 0 Discharge Orders: Discharge (Order); Ordered 10/03/18 Ordered By: Adriel Gomez Discharge Health Status Brief summary of current health status: Patient is alert and responsive, chest pain returned treated with nitroglycerin, morphine and Zofran. Precautions: [place] Provider Discharge Instructions Diet comment: NPO Activity: Bedrest Cold/Heat Therapy: none Oxygen: As needed to maintain O2 saturation > 92% Other treatments: nebulizer Xopenex as needed Skin/Wound/Dressing Care Dressing: none Other wound treatment: none [facility] Restrictions to mobility: none Discharge Data Attending Provider: Arlene Arellano Admit Date/Time: 10/01/18 17:50 Quality AMI Clinical Trial Participant: No
--- NOTE | 2018-10-02 22:49 | PC.NURSE ---
MEDICATION GIVEN: One time now doses of lipitor, metoprolol, and plavix given to patient at 2250 10/02/18. Meds given without documentation on eMar due to remote pharmacy being locked out of system and unable to verify medications.
[2018-10-02] MEDS: METOPROLOL IR 25 MG TABLET 12.5 MG PO (22:50)
[2018-10-02] MEDS: ATORVASTATIN 10 MG TABLET 30 MG PO (22:50)
[2018-10-02] MEDS: CLOPIDOGREL 75 MG TABLET 300 MG PO (22:53)
[2018-10-02 22:54] LABS: Troponin I 0.345 ng/mL (0.01-0.034)
[2018-10-03] VITALS (7 sets, daily range): BP systolic 122–135; BP diastolic 71–80; PULSE 48–66; RESP 18; TEMP 36.8; O2SAT 97–99
[2018-10-03] MEDS: NITROGLYCERIN 0.3 MG SL TAB SL (01:56)
[2018-10-03] MEDS: NITROGLYCERIN 0.4 MG SL TAB SL ×2 (02:02→02:20)
[2018-10-03] MEDS: ONDANSETRON 4 MG/2 ML INJ IV (02:05)
[2018-10-03] MEDS: MORPHINE 2 MG/ML INJ IV (02:33)
--- NOTE | 2018-10-03 03:09 | PC.NURSE ---
Pt. left the hospital at 0245 via [facility] ambulance. Prior to [facility] arriving, pt. c/o of epigastric pain rate at 8/10, nitro given and after 5 min. pain still is present so second nitro was given which brought pts. pain down to a 3/10. Pt. also given Zofran 4 mg. for the nausea. Epigastric pain again started escalating so 3rd nitro was given which was not effective, so TONY Gomez called and got order for Morphine 2 mg IV. Pt. expressed some relief but not totally gone, report was given to Kiana RN and at 0307 report given to Jesús at [facility], questions answered.
--- NOTE | 2018-10-03 13:20 | DI.NM.S_ITS ---
DATE OF SERVICE: 10/02/2018 PROCEDURE: Stress perfusion study. INDICATION: Acute epigastric pain, abnormal troponin. RADIOPHARMACEUTICAL: 20.6 mCi technetium-99m Myoview IV was injected at stress. CARDIAC STRESS: Patient underwent exercise perfusion study under the supervision of an attending staff. She walked on [place] protocol for 5 minutes 25 seconds and achieved target heart rate about 99%. There was normal blood pressure response. Patient was unable to continue on treadmill. Baseline EKG revealed sinus rhythm. There were QS complexes in V1 to V2 and T wave inversion in septal leads. Some minimal ST elevation in V2, V3. During stress, there were no convincing ischemic changes. There were some PVCs and PACs. Occasional ventricular couplets. No sustained ventricular tachycardia. RAW DATA: There appears to be adequate myocardial uptake. GATED STUDY: Stress LV ejection fraction 53%; however, on visual inspection, LV ejection fraction appears to be 40% to 45% with [id number] anterior wall and anterior septum hypokinesis. Lung/heart ratio 0.30, which is within normal limits. Stress LV end-diastolic volume 120 mL. MYOCARDIAL PERFUSION: Stress supine and stress prone images were compared to each other. It appears to be that patient has moderate-sized severe perfusion defect of [id number]-[id number] anterior wall as well as [id number]-wv-[id number] anterior septum, suggestive of proximal to mid occlusive LAD disease. CONCLUSION: 1. This is an abnormal myocardial perfusion study with severe perfusion defect involving [id number]-fi-wlbqsa anterior wall and [id number]-ol-xpflyd anterior septum. Last night, patient got transferred to [facility] as patient has nonsustained ventricular tachycardia for left heart catheterization in anticipation of revascularization. Resting study could not be performed as patient has left the facility. Informed the findings to Dr. Hutson at [facility], who is managing this patient over there. Abdirizak Essie - TEAM LEADER/fn/kv doc#: [id number]/job#: [id number] dd: 10/03/2018 12:51:00 dt: 10/03/2018 13:13:00 DICTATING MD/COPIES TO: Cheryl Mirza MD COPIES MNE: BERNY
[2018-10-06 09:11] LABS: Hepatitis A Antibody IgM NONREACTIVE (NONREACTIVE); Hepatitis Acute Panel Interp 0.02 (NONREACTIVE); Hepatitis B Core Antibody IgM NONREACTIVE (NONREACTIVE); Hepatitis B Surface Antigen NONREACTIVE (NONREACTIVE); Hepatitis C Antibody NONREACTIVE
== END 2018-10-03 02:45 | disposition short-term general hospital (02) | DRG 281 ==
LOC: ED 17:27 → AC 17:51
PROVIDERS: Emergency Medicine; Nurse Practitioner Adult Health; Admitting Provider Internal Medicine; Emergency Provider Nurse Practitioner Family; Visit Provider Internal Medicine
DX: I21.09 ST elevation (STEMI) myocardial infarction involving other coronary artery of anterior wall (principal); I47.2 Ventricular tachycardia; F17.210 Nicotine dependence, cigarettes, uncomplicated; J44.9 Chronic obstructive pulmonary disease, unspecified
CPT/HCPCS: 36415; 74022; 74177; 78451; 80048; 80053; 80061; 80074; 81003; 81015; 82550; 83690; 83735; 84484; 85025; 85610; 85730; 93005; 93016; 93017; 93018; 93306; 94762; 96361; 96365; 96375; 99283; 99285; A9502; J1170; J1650; J2270; J2405; Q9967

== ENCOUNTER → 2018-12-03 11:08 | Outpatient (CLI) | payer OTHER, MEDICAID, SELFPAY ==
[2018-10-01 19:33] VITALS: BMI 18.0
[2018-12-03 12:06] LABS: BUN Creatinine Ratio 22.9 (6-22); Blood Urea Nitrogen 16 mg/dL (7-17); Carbon Dioxide 34 mmol/L (22-32); Chloride 96 mmol/L (98-107); Estimated Glomerular Filt Rate > 60.0 mL/min (>60); Glucose 81 mg/dL (70-100); HEMOLYSIS < 15 (0-50); Magnesium 2.1 mg/dL (1.6-2.3); Potassium 4.4 mmol/L (3.4-5.1); Sodium 138 mmol/L (137-145)
[2018-12-03 12:34] LABS: Thyroid Stimulating Hormone 1.25 uIU/mL (0.47-4.68)
== END ==
PROVIDERS: Visit Provider Internal Medicine Cardiovascular Disease
DX: I47.2 Ventricular tachycardia (principal)
CPT/HCPCS: 36415; 80048; 83735; 84443

== ENCOUNTER 2019-08-05 07:02 | Emergency (ER) | payer OTHER, MEDICAID, SELFPAY ==
[2018-10-01 19:33] VITALS: BMI 18.0
[2019-08-05 07:10] VITALS: BP 138/85; PULSE 120; RESP 22; TEMP 36.8; O2SAT 98; BMI 21.9
[2019-08-05 07:38] LABS: Add Manual Diff / Slide Review NO; Basophils Absolute Auto 0 /uL (0-100); Basophils Percent Auto 0.3 % (0-2); Eosinophils Absolute Auto 0 /uL (0-450); Eosinophils Percent Auto 0.4 % (2-4); Hematocrit 44.1 % (36-46); Hemoglobin 14.8 g/dL (12.0-16.0); Lymphocytes Absolute Auto 2700 /uL (1100-4500); Lymphocytes Percent Auto 32.9 % (25-40); Mean Corpuscular HGB Conc 33.7 % (30-36); Mean Corpuscular Hemoglobin 29.9 PG (26-34); Mean Corpuscular Volume 88.9 fL (80-100); Monocytes Absolute Auto 800 /uL (0-900); Monocytes Percent Auto 10.4 % (3-14); Neutrophils Absolute Auto 4500 /uL (1500-7000); Platelet Count 157 X10^3/uL (150-400); Red Blood Cell Count 4.96 X10^6/uL (4.0-5.2); Red Cell Distribution Width 12.8 % (11.6-14.8); White Blood Cell Count 8.1 X10^3/uL (4.5-11.0)
[2019-08-05 07:40] LABS: Prothrombin Time 11.7 SECONDS (10.1-12.7)
[2019-08-05 07:43] LABS: PTT Partial Thromboplastin Tim 33 SECONDS (26.4-36.2)
[2019-08-05 07:50] LABS: Alanine Aminotransferase 16 IU/L (<35); Albumin Globulin Ratio 1.3 (1.0-2.8); Alkaline Phosphatase 59 U/L (38-126); Aspartate Aminotransferase 25 IU/L (14-36); BUN Creatinine Ratio 23.3 (6-22); Bilirubin Total 0.4 mg/dL (0.2-1.3); Blood Urea Nitrogen 14 mg/dL (7-17); Calcium 8.8 mg/dL (8.4-10.2); Carbon Dioxide 29 mmol/L (22-32); Chloride 97 mmol/L (98-107); Estimated Glomerular Filt Rate > 60.0 mL/min (>60); Globulin 3.1 g/dL (1.7-4.1); Glucose 121 mg/dL (70-100); HEMOLYSIS < 15 (0-50); Lipase 155 U/L (23-300); Potassium 3.1 mmol/L (3.4-5.1); Sodium 138 mmol/L (137-145); Total Protein 7.1 g/dL (6.3-8.2)
--- NOTE | 2019-08-05 07:54 | ED.ABDPAIN ---
HPI - Abdominal Pain General Chief Complaint: Abdominal Pain Stated Complaint: sick to stomach,hard to breath,stomach pain Time Seen by Provider: 08/05/19 07:31 Source: patient Mode of arrival: Ambulatory Limitations: no limitations History of Present Illness HPI narrative: Patient comes emergency department complaining upper abdominal pain for the last 5 days. She states that it has been stabbing pain in the left upper quadrant and epigastric area. She states she has been nauseated and vomiting, as well. She states this has never happened to her before, though she has had abdominal pain that was a little higher, on the border of the chest, and was found to have both pancreatitis and an CA at same time period patient states that her temperature has been 99.9, which she feels is higher than her usual. She denies any dysuria. No back pain. No chest pain, shortness breath, or cough. She states that the main thing that makes the pain worse is positional change and feeling stressed. Patient states she had her gallbladder removed just over a year ago. She is not known to have ulcers. No other complaints at this time. Related Data Previous Rx's Medication Instructions Recorded omeprazole 40 mg PO BID #60 cap 08/05/19 ondansetron 4 mg PO Q6H PRN #20 tab 08/05/19 Allergies Allergy/AdvReac Type Severity Reaction Status Date / Time No Known Drug Allergies Allergy Verified 08/05/19 07:10 Review of Systems Review of Systems ROS Unobtainable: All systems reviewed & are unremarkable except as noted in HPI and below Constitutional Constitutional: Denies chills, Denies fatigue, Denies fever(s), Denies frequent falls, Denies lethargy and Denies weakness Eyes Eyes: Denies change in vision, Denies eye discharge, Denies irritation and Denies loss of vision ENT Ears, Nose, Mouth, and Throat: Denies change in voice, Denies dizziness, Denies neck pain, Denies sore throat and Denies throat swelling Cardiovascular Cardiovascular: Denies chest pain, Denies irregular heart rhythm, Denies lightheadedness, Denies palpitations, Denies dyspnea, Denies dyspnea on exertion and Denies orthopnea Respiratory Respiratory: Denies cough, Denies dyspnea, Denies dyspnea on exertion and Denies wheezing Gastrointestinal Gastrointestinal: Reports abdominal pain, Denies change in bowel habits, Denies diarrhea, Denies nausea and Denies vomiting Genitourinary Genitourinary: Denies hematuria, Denies flank pain, Denies urinary incontinence and Denies urinary urgency Musculoskeletal Musculoskeletal: Denies back pain, Denies muscle weakness, Denies neck pain, Denies numbness and Denies tingling Integumentary/Breasts Skin/Breast: Denies pruritus, Denies erythema, Denies rash and Denies wounds Neurologic Neurologic: Denies behavioral changes, Denies confusion, Denies dizziness, Denies frequent falls, Denies loss of vision, Denies numbness, Denies tingling and Denies weakness Psychiatric Psychiatric: Denies anxiety, Denies behavioral changes, Denies confusion, Denies depression, Denies homicidal ideation and Denies suicidal ideation Endocrine Endocrine: Denies fatigue, Denies flushing and Denies palpitations Hematologic/Lymphatic Hematologic/Lymphatic: Denies easy bruising Allergic/Immunologic Allergic/Immunologic: Denies urticaria, Denies throat swelling and Denies wheezing Patient History Medical History Chronic bronchitis (Acute) Gallbladder mass (Acute) Recurrent urinary tract infection (Acute) Tobacco abuse (Acute) Surgical History History of bilateral tubal ligation (Acute) History of cholecystectomy (Acute) Family History Mother Cancer Sister Cancer Father Medical history unknown Brother Medical history unknown Social History marital status: household members: spouse occupational status: employed other: 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 Smoking Status: Current every day smoker Tobacco: How many years used: 34 quit status: not considering quitting second hand exposure: Yes alcohol intake: former substance use type: marijuana and other Smoking Status: Current every day smoker alcohol intake frequency: other Substance Use Type: marijuana Exam Initial Vital Signs Initial Vital Signs: Vital Signs Temperature 98.2 F 08/05/19 07:10 Pulse Rate 120 H 08/05/19 07:10 Respiratory Rate 22 08/05/19 07:10 Blood Pressure 138/85 08/05/19 07:10 Pulse Oximetry 98 08/05/19 07:10 Const General: cooperative and well developed Nutritional Appearance: well nourished Orientation: alert, awake, oriented x3 and not confused [facility] Head: normocephalic and atraumatic Ears: external ears normal Nose: external nose normal and No nasal discharge Face and sinus: face symmetric and No dry mucous membranes Mouth: oral mucosae normal and moist mucous membranes Teeth and gingiva: dentition normal Eyes General: appearance normal, both eyes and all related structures Eyelids: eyelids normal Conjunctivae: conjunctivae normal Sclera: sclerae normal Pupils: PERRL EOM: EOM intact bilaterally Neck Neck: normal visual inspection, trachea midline, No lymphadenopathy, No midline deformity and No JVD Lymphatic: No lymphedema Chest Chest: normal inspection of the chest Resp Effort & Inspection: normal respiratory effort, able to speak in complete sentences, no respiratory distress and no use of accessory muscles Auscultation: clear to auscultation bilaterally, no rales, no rhonchi and no wheezes Cardio Rate: regular rate Rhythm: regular rhythm Heart Sounds: no click, no gallops, no murmurs and no rubs Pulses: normal peripheral pulses GI Inspection: non-distended Palpation: soft, no hepatosplenomegaly, No guarding, No pulsatile mass and tender (Left upper quadrant, less in the epigastric area) Back/Spine/Pelvis Back: No CVA tenderness Cervical Spine: cervical ROM normal and No pain with cervical ROM Thoracic/Lumbar Spine: thoracic and lumbar spine normal to inspection Skin General: no rashes or lesions noted, No jaundice and No petechiae Neuro General: alert, oriented x3, gait normal and no focal motor deficits Speech: speech normal Extrem General: full ROM, no clubbing, cyanosis or edema, no pedal edema and no calf tenderness Psych Appearance: well kempt Mental Status: mental status grossly normal Attitude: cooperative Thought Content: normal and suicidality Judgment: judgment good Course Course Course Narrative: Patient was worked up with labs and EKG, given IV fluids, Zofran, and a small dose of Dilaudid. Her labs, including troponin, were unremarkable. EKG did not show any signs of acute ischemia or other concerning findings. The patient was found to be feeling somewhat better after treatment. I discussed with her that the next step in workup would most likely be endoscopy, which would be done as an outpatient. The patient should follow-up with her outpatient care providers to discuss having this arranged. We've discussed home management of the symptoms, as well as the usual indications for return. Orders Ordered: Discontinued Medications Hydromorphone HCl (Dilaudid) 0.5 mg IV NOW ONE Stop: 08/05/19 07:54 Last Admin: 08/05/19 08:10 Dose: 0.5 mg Documented by: PACO Sodium Chloride (Normal Saline 0.9%) 1,000 mls @ 1,000 mls/hr IV BOLUS ONE Stop: 08/05/19 08:52 Last Infusion: 08/05/19 09:15 Dose: 0 mls/hr Documented by: SHOSHANASENCandy Admin: 08/05/19 08:10 Dose: 1,000 mls/hr Documented by: PACO Ondansetron HCl (Zofran) 4 mg IV NOW ONE Stop: 08/05/19 07:54 Last Admin: 08/05/19 08:10 Dose: 4 mg Documented by: PACO Vital Signs Vital signs: Vital Signs - 8 hr 08/05/19 07:10 Temperature 98.2 F Pulse Rate 120 H Respiratory Rate 22 Blood Pressure 138/85 Pulse Oximetry 98 MDM - Abdominal Pain Medical Records Attestation: I reviewed the patient's medical records. Lab Data Attestation: I reviewed the patient's lab results. Result diagrams: 08/05/19 07:11 08/05/19 07:11 Labs: Lab Results 08/05/19 08/05/19 08/05/19 Range/Units 07:11 07:11 07:11 WBC 8.1 (4.5-11.0) X10^3/uL RBC 4.96 (4.0-5.2) X10^6/uL Hgb 14.8 (12.0-16.0) g/dL Hct 44.1 (36-46) % MCV 88.9 (80-100) fL MCH 29.9 (26-34) PG MCHC 33.7 (30-36) % RDW 12.8 (11.6-14.8) % Plt Count 157 (150-400) X10^3/uL Neut % (Auto) 56.0 (50-75) % Lymph % (Auto) 32.9 (25-40) % [place] % (Auto) 10.4 (3-14) % Eos % (Auto) 0.4 L (2-4) % Baso % (Auto) 0.3 (0-2) % Neut # (Auto) 4500 (9594-4185) /uL Lymph # (Auto) 2700 (9111-7858) /uL [place] # (Auto) 800 (0-900) /uL Eos # (Auto) 0 (0-450) /uL Baso # (Auto) 0 (0-100) /uL PT 11.7 (10.1-12.7) SECONDS INR 1.0 (0.9-1.3) APTT 33 D (26.4-36.2) SECONDS Sodium 138 (137-145) mmol/L Potassium 3.1 L (3.4-5.1) mmol/L Chloride 97 L (98-107) mmol/L Carbon Dioxide 29 (22-32) mmol/L BUN 14 (7-17) mg/dL Creatinine 0.60 (0.52-1.04) mg/dL Estimated GFR > 60.0 (>60) mL/min BUN/Creatinine Ratio 23.3 H (6-22) Glucose 121 H (70-100) mg/dL Calcium 8.8 (8.4-10.2) mg/dL Total Bilirubin 0.4 (0.2-1.3) mg/dL AST 25 (14-36) IU/L ALT 16 (<35) IU/L Alkaline Phosphatase 59 (38-126) U/L Total Creatine Kinase (30-135) U/L CK-MB (CK-2) CK-MB (CK-2) Rel Index Troponin I (0.01-0.034) ng/mL Total Protein 7.1 (6.3-8.2) g/dL Albumin 4.0 (3.5-5.0) g/dL Globulin 3.1 (1.7-4.1) g/dL Albumin/Globulin Ratio 1.3 (1.0-2.8) Lipase 155 (23-300) U/L 08/05/ Range/Units 07:11 WBC (4.5-11.0) X10^3/uL RBC (4.0-5.2) X10^6/uL Hgb (12.0-16.0) g/dL Hct (36-46) % MCV (80-100) fL MCH (26-34) PG MCHC (30-36) % RDW (11.6-14.8) % Plt Count (150-400) X10^3/uL Neut % (Auto) (50-75) % Lymph % (Auto) (25-40) % [place] % (Auto) (3-14) % Eos % (Auto) (2-4) % Baso % (Auto) (0-2) % Neut # (Auto) (5954-7477) /uL Lymph # (Auto) (2707-4542) /uL [place] # (Auto) (0-900) /uL Eos # (Auto) (0-450) /uL Baso # (Auto) (0-100) /uL PT (10.1-12.7) SECONDS INR (0.9-1.3) APTT (26.4-36.2) SECONDS Sodium (137-145) mmol/L Potassium (3.4-5.1) mmol/L Chloride (98-107) mmol/L Carbon Dioxide (22-32) mmol/L BUN (7-17) mg/dL Creatinine (0.52-1.04) mg/dL Estimated GFR (>60) mL/min BUN/Creatinine Ratio (6-22) Glucose (70-100) mg/dL Calcium (8.4-10.2) mg/dL Total Bilirubin (0.2-1.3) mg/dL AST (14-36) IU/L ALT (<35) IU/L Alkaline Phosphatase (38-126) U/L Total Creatine Kinase 25 L (30-135) U/L CK-MB (CK-2) TNP CK-MB (CK-2) Rel Index TNP Troponin I < 0.012 (0.01-0.034) ng/mL Total Protein (6.3-8.2) g/dL Albumin (3.5-5.0) g/dL Globulin (1.7-4.1) g/dL Albumin/Globulin Ratio (1.0-2.8) Lipase (23-300) U/L ECG Data Attestation: I personally reviewed and interpreted this ECG as follows: (See below) Interpretation: Twelve lead EKG performed August 05, 2018 at 7:22 a.m., as follows: Regular ventricular rhythm with a rate of 97 beats per minute NE interval 163 millisecond QRS duration 81 milliseconds QTC interval [address] T wave changes Interpretation: Normal sinus rhythm; right atrial enlargement; left atrial enlargement; nonspecific T-wave abnormality Discharge Plan Departure Patient Disposition: Home Clinical Impression: Acute epigastric pain Discharge Date/Time: 08/05/19 10:09 Instructions: DI for Abdominal Pain-Adult Activity Restrictions/Additional Instructions: Your labs all look very good. Your EKG also looks good. There is no evidence of heart attack or pancreatitis today. The next test that you most likely need to have is an endoscopy to see if you have inflammation in the inner lining of her stomach, or if you even have potentially an ulcer. Please follow-up with your doctor as soon as possible to discuss the possibility of being referred for this. In the meantime, please take the medication for your stomach, as directed, to help with symptoms. Prescriptions: New omeprazole 40 mg capsule,delayed release(DR/EC) 40 mg PO BID Qty: 60 RF: 0 ondansetron 4 mg tablet,disintegrating 4 mg PO Q6H PRN (Reason: nausea and vomiting) Qty: 20 RF: 0 Referrals: [facility] [Provider Group]
[2019-08-05 08:00] VITALS: BP 143/89; PULSE 64
[2019-08-05 08:07] VITALS: BP 135/52; PULSE 82; RESP 21; O2SAT 93
[2019-08-05] MEDS: SODIUM CHLORIDE 0.9% 1,000 ML 1000 ML IV (08:10)
[2019-08-05] MEDS: ONDANSETRON 4 MG/2 ML INJ IV (08:10)
[2019-08-05] MEDS: HYDROMORPHONE 0.5 MG INJ IV (08:10)
[2019-08-05 08:55] LABS: Creatine Kinase 25 U/L (30-135)
[2019-08-05 09:06] LABS: Troponin I < 0.012 ng/mL (0.01-0.034)
[2019-08-05 09:25] VITALS: BP 133/84; PULSE 61
== END 2019-08-05 10:09 | disposition home or self-care (01) ==
PROVIDERS: Emergency Provider Emergency Medicine
DX: R10.13 Epigastric pain (principal)
CPT/HCPCS: 80053; 82550; 83690; 84484; 85025; 85610; 85730; 93005; 93010; 96361; 96374; 96375; 99284; J1170; J2405

== ENCOUNTER → 2019-10-13 16:16 | Outpatient (CLI) | payer OTHER, MEDICAID, SELFPAY ==
[2018-10-01 19:33] VITALS: BMI 18.0
[2019-10-13 17:18] LABS: Add Manual Diff / Slide Review NO; Basophils Absolute Auto 0 /uL (0-100); Basophils Percent Auto 0.3 % (0-2); Eosinophils Absolute Auto 100 /uL (0-450); Eosinophils Percent Auto 2.2 % (2-4); Hematocrit 37.5 % (36-46); Hemoglobin 12.7 g/dL (12.0-16.0); Lymphocytes Absolute Auto 2300 /uL (1100-4500); Lymphocytes Percent Auto 34.2 % (25-40); Mean Corpuscular Volume 88.4 fL (80-100); Monocytes Absolute Auto 500 /uL (0-900); Monocytes Percent Auto 7.6 % (3-14); Neutrophils Absolute Auto 3700 /uL (1500-7000); Neutrophils Percent Auto 55.7 % (50-75); Platelet Count 149 X10^3/uL (150-400); Red Blood Cell Count 4.24 X10^6/uL (4.0-5.2); Red Cell Distribution Width 13.4 % (11.6-14.8); White Blood Cell Count 6.6 X10^3/uL (4.5-11.0)
[2019-10-13 18:23] LABS: Alanine Aminotransferase 17 IU/L (<35); Albumin 4.2 g/dL (3.5-5.0); Albumin Globulin Ratio 1.4 (1.0-2.8); Alkaline Phosphatase 63 U/L (38-126); Aspartate Aminotransferase 34 IU/L (14-36); BUN Creatinine Ratio 21.4 (6-22); Bilirubin Total 0.3 mg/dL (0.2-1.3); Blood Urea Nitrogen 15 mg/dL (7-17); Calcium 9.4 mg/dL (8.4-10.2); Carbon Dioxide 37 mmol/L (22-32); Chloride 101 mmol/L (98-107); Cholesterol 210 mg/dL (140-199); Estimated Glomerular Filt Rate > 60.0 mL/min (>60); Glucose 95 mg/dL (70-100); HDL Cholesterol 52 mg/dL (40-60); HEMOLYSIS < 15 (0-50); LDL Cholesterol Calculated 125 mg/dL (<100); Sodium 142 mmol/L (137-145); Total Protein 7.2 g/dL (6.3-8.2); Triglycerides 163 mg/dL (35-150)
[2019-10-13 18:30] LABS: Potassium 5.6 mmol/L (3.4-5.1)
== END ==
PROVIDERS: Referring Provider Family Medicine; Visit Provider Family Medicine
DX: K21.9 Gastro-esophageal reflux disease without esophagitis (principal); I21.4 Non-ST elevation (NSTEMI) myocardial infarction; I51.81 Takotsubo syndrome
CPT/HCPCS: 36415; 80053; 80061; 85025

== ENCOUNTER → 2019-10-28 14:28 | Outpatient (CLI) | payer OTHER, MEDICAID, SELFPAY ==
[2018-10-01 19:33] VITALS: BMI 18.0
[2019-10-28 16:39] LABS: BUN Creatinine Ratio 27.3 (6-22); Blood Urea Nitrogen 18 mg/dL (7-17); Calcium 8.9 mg/dL (8.4-10.2); Carbon Dioxide 32 mmol/L (22-32); Chloride 102 mmol/L (98-107); Estimated Glomerular Filt Rate > 60.0 mL/min (>60); Glucose 84 mg/dL (70-100); HEMOLYSIS < 15 (0-50); Potassium 3.9 mmol/L (3.4-5.1); Sodium 139 mmol/L (137-145)
== END ==
PROVIDERS: PCP Neuromusculoskeletal Medicine & OMM; Referring Provider Neuromusculoskeletal Medicine & OMM; Visit Provider Neuromusculoskeletal Medicine & OMM
DX: E87.5 Hyperkalemia (principal)
CPT/HCPCS: 36415; 80048

== ENCOUNTER → 2024-11-26 11:52 | Outpatient (CLI) | payer MEDICARE, SELFPAY ==
[2018-10-01 19:33] VITALS: BMI 18.0
--- NOTE | 2024-11-26 11:57 | DI.RAD.S_ITS ---
PROCEDURE: XR CHEST 2V INDICATIONS: Takotsubo syndrome TECHNIQUE: 2 views of the chest were acquired. COMPARISON: [facility], CR, XR CHEST 2V, 03/07/2018, 11:07. [facility], CT, CT CHEST WITH CONTRAST, 08/03/2024, 12:06. FINDINGS AND IMPRESSION: Diffuse [id number] interstitial prominence without dense consolidation or pleural effusion, possibly atypical infection versus edema versus interstitial lung disease. Attention on follow-up chest CT, as previously suggested. Normal heart size. Degenerative osseous changes. Dictated by: Felipe Otero M.D. on 11/27/2024 at 13:27 Approved by: Felipe Otero M.D. on 11/27/2024 at 13:28
[2024-11-26 13:38] LABS: NT-proBNP (BNP-Adult 18+) 199 pg/mL (<125)
== END ==
LOC: RAD 11:55
PROVIDERS: PCP Neuromusculoskeletal Medicine & OMM; Referring Provider Nurse Practitioner; Visit Provider Nurse Practitioner
DX: I51.81 Takotsubo syndrome (principal)
CPT/HCPCS: 36415; 71046; 83880